=== PATIENT | female | born 1990 | race Caucasian/White ===

== ENCOUNTER 2017-10-10 03:32 | Emergency (ER) | payer OTHER, MEDICARE ==
[2017-10-10] MEDS ORDERED: Ondansetron HCl/PF 4 MG/2 ML Vial ONE (05:07)
[2017-10-10 06:22] LABS: #Lymphocytes 0.7 thou/uL (1.20-3.40); #Neutrophils 13.3 thou/uL (1.40-6.50); %Basophils 0.2 % (0.0-1.0); %Eosinophils 0.2 % (0.0-10.0); %Lymphocytes 4.9 % (21.0-51.0); %Monocytes 6.7 % (0.0-10.0); Mean Corpuscular HGB CONC 29.6 g/dL (32.0-36.0); Mean Corpuscular Hemoglobin 20.7 pg (27.0-31.0); Mean Corpuscular Volume 70.1 fl (81.0-99.0); Mean Platelet Volume 9.3 fL (7.4-10.4); Platelet Count 287 thou/uL (130-400); RBC Distribution Width 17.5 % (11.5-14.5); Red Blood Cell (RBC) Count 4.81 mill/uL (4.20-5.40); White Blood Cell (WBC) Count 15.1 thou/uL (4.8-10.8)
[2017-10-10 06:42] LABS: ALT (SGPT) 18 U/L (8-55); AST (SGOT) 22 U/L (5-34); Albumin 3.9 g/dL (3.5-5.0); Alkaline Phosphatase 67 U/L (40-150); Anion Gap 10 mmol/L (10-20); BUN (Urea Nitrogen) 9 mg/dL (7.0-18.7); Bilirubin, Total 0.3 mg/dL (0.2-1.2); Calc. Creatinine Clearance 0 mL/min (70-130); Carbon Dioxide 21 mmol/L (22-29); Chloride 103 mmol/L (98-107); Estimated GFR-MDRD Greater than 90; Globulin 4.1 g/dL (2.4-3.5); Glucose 106 mg/dL (70-105); Potassium 4.1 mmol/L (3.5-5.1); Sodium 130 mmol/L (136-145)
== END 2017-10-10 07:24 | disposition home or self-care (01) ==
LOC: ERS 03:32
DX: J20.9 Acute bronchitis, unspecified (principal); K50.90 Crohn's disease, unspecified, without complications; J45.909 Unspecified asthma, uncomplicated; F32.9 Major depressive disorder, single episode, unspecified; F41.9 Anxiety disorder, unspecified; F42.9 Obsessive-compulsive disorder, unspecified
CPT/HCPCS: 36415; 80053; 85025; 87804; 96374; J2405

== ENCOUNTER 2017-11-06 16:00 | Outpatient (CLI) | payer OTHER, MEDICARE | END 2017-11-06 16:01 | disposition home or self-care (01) | LOC: BICRAD 16:00 | PROVIDERS: ATTEND Internal Medicine | DX: D64.9 Anemia, unspecified (principal); K60.3 Anal fistula | CPT/HCPCS: 74019 ==

== ENCOUNTER 2017-12-18 09:53 | Outpatient (CLI) | payer OTHER, MEDICARE | END 2017-12-18 09:54 | disposition home or self-care (01) | LOC: BICMAMMO 09:53 | PROVIDERS: ATTEND Family Medicine | DX: Z09 Encounter for follow-up examination after completed treatment for conditions other than malignant neoplasm (principal); Z87.2 Personal history of diseases of the skin and subcutaneous tissue; Z80.3 Family history of malignant neoplasm of breast | CPT/HCPCS: 77066; G0279 ==

== ENCOUNTER 2018-01-13 10:48 | Emergency (ER) | payer OTHER, MEDICARE ==
[2018-01-13 11:39] LABS: #Eosinphils 0.2 thou/uL (0.0-0.7); #Lymphocytes 1.1 thou/uL (1.20-3.40); #Monocytes 0.5 thou/uL (0.11-0.59); #Neutrophils 4.5 thou/uL (1.40-6.50); %Basophils 0.4 % (0.0-1.0); %Eosinophils 2.9 % (0.0-10.0); %Lymphocytes 16.7 % (21.0-51.0); %Monocytes 8.5 % (0.0-10.0); %Neutrophils 71.5 % (42.0-75.0); Hemoglobin 12.7 g/dL (12.0-16.0); Mean Corpuscular HGB CONC 31.4 g/dL (32.0-36.0); Mean Corpuscular Hemoglobin 24.8 pg (27.0-31.0); Mean Corpuscular Volume 79.1 fl (81.0-99.0); Mean Platelet Volume 7.6 fL (7.4-10.4); Platelet Count 306 thou/uL (130-400); RBC Distribution Width 19.7 % (11.5-14.5); Red Blood Cell (RBC) Count 5.14 mill/uL (4.20-5.40); White Blood Cell (WBC) Count 6.3 thou/uL (4.8-10.8)
[2018-01-13 11:49] LABS: Lactic Acid 1.3 mmol/L (0.5-2.2)
[2018-01-13 11:55] LABS: ALT (SGPT) 25 U/L (8-55); AST (SGOT) 22 U/L (5-34); Albumin 3.6 g/dL (3.5-5.0); Alkaline Phosphatase 90 U/L (40-150); Anion Gap 10 mmol/L (10-20); BUN (Urea Nitrogen) 9 mg/dL (7.0-18.7); Bilirubin, Total Less than 0.2 mg/dL (0.2-1.2); CRP (Inflammatory) 2.15 mg/dL (= or < 0.5); Calc. Creatinine Clearance 0 mL/min (70-130); Calcium 8.9 mg/dL (7.8-10.44); Carbon Dioxide 22 mmol/L (22-29); Chloride 107 mmol/L (98-107); Estimated GFR-MDRD Greater than 90; Globulin 4.2 g/dL (2.4-3.5); Glucose 126 mg/dL (70-105); Potassium 3.7 mmol/L (3.5-5.1); Protein, Total 7.8 g/dL (6.0-8.3); Sodium 135 mmol/L (136-145)
[2018-01-13 12:03] LABS: BHCG - Serum Negative (NEGATIVE); Pregs Control Background? CLEAR/WHITE (CLR/WHITE); Pregs Control Bar Appear? YES (CONTROL BAR)
== END 2018-01-13 13:20 | disposition home or self-care (01) ==
LOC: ERS 10:48
DX: F42.9 Obsessive-compulsive disorder, unspecified; K61.0 Anal abscess; F32.9 Major depressive disorder, single episode, unspecified; K50.90 Crohn's disease, unspecified, without complications; F41.9 Anxiety disorder, unspecified; J45.909 Unspecified asthma, uncomplicated
CPT/HCPCS: 36415; 80053; 83605; 84703; 85025; 86140

== ENCOUNTER 2018-04-11 02:14 | Inpatient (IN) | payer OTHER, MEDICARE ==
[2018-04-11 02:43] LABS: #Eosinphils 0.3 thou/uL (0.0-0.7); #Monocytes 0.6 thou/uL (0.11-0.59); #Neutrophils 3.8 thou/uL (1.40-6.50); %Basophils 0.5 % (0.0-1.0); %Eosinophils 5.6 % (0.0-10.0); %Lymphocytes 17.1 % (21.0-51.0); %Monocytes 10.2 % (0.0-10.0); %Neutrophils 66.6 % (42.0-75.0); Hemoglobin 12.9 g/dL (12.0-16.0); Mean Corpuscular Hemoglobin 26.4 pg (27.0-31.0); Mean Corpuscular Volume 82.5 fL (78.0-98.0); Mean Platelet Volume 5.7 fL (7.4-10.4); Platelet Count 338 thou/uL (130-400); RBC Distribution Width 12.7 % (11.5-14.5); Red Blood Cell (RBC) Count 4.88 mill/uL (4.20-5.40); White Blood Cell (WBC) Count 5.7 thou/uL (4.8-10.8)
[2018-04-11 03:06] LABS: ALT (SGPT) 12 U/L (8-55); AST (SGOT) 15 U/L (5-34); Albumin 3.5 g/dL (3.5-5.0); Alkaline Phosphatase 95 U/L (40-150); Anion Gap 11 mmol/L (10-20); BUN (Urea Nitrogen) 8 mg/dL (7.0-18.7); Bilirubin, Total 0.2 mg/dL (0.2-1.2); Calc. Creatinine Clearance 0 mL/min (70-130); Calcium 9.1 mg/dL (7.8-10.44); Carbon Dioxide 26 mmol/L (22-29); Chloride 102 mmol/L (98-107); Estimated GFR-MDRD Greater than 90; Globulin 4.2 g/dL (2.4-3.5); Glucose 109 mg/dL (70-105); Potassium 3.7 mmol/L (3.5-5.1); Protein, Total 7.7 g/dL (6.0-8.3); Sodium 135 mmol/L (136-145)
[2018-04-11 03:07] LABS: CRP (Inflammatory) 8.1 mg/dL (= or < 0.5)
[2018-04-11] MEDS ORDERED: Ondansetron HCl/PF 4 MG/2 ML Vial ONE ×2 (05:07→05:32)
[2018-04-11 05:47] LABS: Bilirubin Negative (Negative); Blood, Urine Trace (Negative); Clarity CLEAR (Clear); Glucose, Urine (Dipstick) Negative (Negative); Leukocyte Negative (Negative); Nitrite Negative (Negative); Protein, Urine (Dipstick) Negative (Neg-Trace); Specific Gravity, Urine 1.037 (1.002-1.036); Urobilinogen 0.2 mg/dL (0.2-1.0); pH, Urine 5.5 (5.0-9.0)
[2018-04-11 05:49] LABS: Bacteria/HPF None Seen HPF (None Seen); Hyaline Casts/LPF 4-6 HYALINE CAST LPF (0-3 Hyaline); Pathc Cast-AUWi Flag 0.14 (0-2.49); Squamous Epithelial 0-3 HPF (0-3)
[2018-04-11 05:50] LABS: Pregnancy Test - Urine (BHCG) Negative (Negative)
[2018-04-11 05:51] LABS: Pregu Control Background? CLEAR/WHITE (CLR/WHITE); Pregu Control Bar Appear? YES (CONTROL BAR); Specific Gravity 1.037 (1.002-1.036)
[2018-04-11] MEDS ORDERED: Metoclopramide HCl 10 MG/2 ML VIAL ONE (05:55)
[2018-04-11] MEDS ORDERED: Ketorolac Tromethamine 30 MG/ML VIAL ONE (05:59)
--- NOTE | 2018-04-11 08:34 | CT ---
CT ABDOMEN AND PELVIS WITH ORAL AND IV CONTRAST: Date: 04/11/18 HISTORY: Abdominal pain. Patient has history of Crohn's disease. FINDINGS: The lung bases are clear. The liver, spleen, pancreas, adrenal glands, and kidneys are normal. The pa tient is post cholecystectomy. The small bowel loops are not abnormally dilated. There is thickening of the wall and enhancement of the wall of the terminal ileum. Surrounding inflammatory changes are seen. There is thickening of the wall of the appendix. Prominent ileocecal lymph nodes are noted. There is a small amount of free flu id in the pelvis. No abnormally loculated fluid collection is seen to suggest abscess formation. Uterus is present. Seton wire is noted in two sinus tracts in the gluteal cleft, similar to that on t he CT pelvis study of 06/06/17. IMPRESSION: Findings consistent with active Crohn's disease. Secondary involvement of the appendix (appendicitis) cannot be completely excluded. POS: JOSE
[2018-04-11] MEDS ORDERED: ISOVUE-370 76%-LOCM 1 ML ONE (10:47)
[2018-04-11] MEDS ORDERED: Water For Inject, Bacteriostat 30 ML ONE (12:01)
--- NOTE | 2018-04-11 12:56 | CON ---
DATE OF CONSULTATION: 04/11/2018 GASTROENTEROLOGY CONSULTATION CHIEF COMPLAINT: Abdominal pain. HISTORY OF PRESENT ILLNESS: Ms. Morris is a 28-year-old woman with complicated penetrating Croh n's disease who has had worsening epigastric pain which is sharp and continuous and radiates down tow ards her right lower quadrant. This pain started flaring worse over the last 4 weeks; however, she h as tried to tough this out at home because her just underwent total proctocolectomy for colon cancer in mid March. He is back home and recovering and getting used to ileostomy; however, this has significantly placed increased stress on Elizabeth. She finally could not deal with the pain furthe r, so she came onto the emergency room today for further care. She has had nausea and vomiting with vomiting up to 3 times per day over the last 3 weeks. She has been keeping liquids down pretty well. She has 20 or more liquidy bloody bowel movements per day. She has had increased output from her p erianal fistulizing disease. She has had Setons in place for years. She has been following with Dr. Pena as an outpatient. She is also followed with Dr. Mitchell Low in [place]. She did take a cour se of budesonide back in December; however, is uncertain if she really had significant improvement with that. She has known deep ulcerations and narrowing at the terminal ileum by colonoscopy by Dr. Pena in 06/2017. There is also some inflammatory change in the sigmoid and then the perianal disease was also noted at that time. She has been on azathioprine for the last couple of years. She was changed from Remicade to Stelara which she started in 11/2017. She had her first followup maintenance injec tion in December and then her second maintenance injection in March. She is due for her third injection next week. Due to the persistent epigastric pain, she has been tried with dicyclomine, however, this has been inadequate. She has been avoiding steroids due to history of PTSD and depressio n. She had what she describes as a manic episode 3 weeks after her delivery. She did not even recog nize that she had had kids and she had forgotten she had moved to [place] and had quite severe psychiat summer changes with that. She has been tried on antidepressants and antianxiety medicines; however, the se were stopped several months ago. When she had her flare of what may have been psychosis following delivery, she was on Zoloft at that time, which she states she does not do well with. She delivered her baby in 12/2016. She has followed with Dr. Alexander and Dr. Mckeon with [facility] . She states that she has been considering diverting colostomy by colorectal surgery for treatment o f her severe perianal disease. She states this has been placed on hold due to her 's cancer a nd treatment. Her colorectal surgeon has since closed his practice and moved and she has been attemp ting to reestablish with a new colorectal surgeon. However, her appointments have been canceled due to changes in the surgeon's scheduled. She at this point not met her new colorectal surgeon. She kennedy s lost from 170 pounds to 150 pounds over the last month or two. PAST MEDICAL HISTORY: PTSD and depression. Possibility of bipolar disorder is also a dorsey sed. Severe penetrating Crohn's disease with perianal disease and severe terminal ileum disease diag [facility] in 2009. She was originally treated with 5-ASA compounds, methotrexate, azathioprine and Beto john before moving to [place]. She has since been on azathioprine and Remicade. However, despite dose escalation of the Remicade, she has failed to respond and she changed to Stelara in addition to azat hioprine as stated above in 11/2017. Asthma and reported diastolic dysfunction. She has also had el evated liver tests previously. She has been treated for vitamin D deficiency and iron deficiency as well. She has been given IV iron by Hematology. PAST SURGICAL HISTORY: Colonoscopy, EGD, Seton placement to perirectal fistulas. FAMILY HISTORY: Negative for GI malignancy. SOCIAL HISTORY: No alcohol, tobacco or drugs. Her is undergoing treatment for colon cancer related to FAP. He just had total proctocolectomy 3 weeks ago. ALLERGIES: NOVOCAIN, PHENERGAN, DAIRY PRODUCTS. MEDICATIONS PRIOR TO ADMISSION: Azathioprine 125 mg daily, Stelara 90 mg subcutaneously every 8 week s, vitamin D. She had been on buspirone previously, but not for several months. She takes Zofran as needed. She has been on Advair and albuterol. REVIEW OF SYSTEMS: Negative x10 systems reviewed except as stated in history of present illness. Yrn porter does have some chills and she reports fever to 101 a couple of days ago. PHYSICAL EXAMINATION: VITAL SIGNS: Temperature 99.4, pulse 76, blood pressure 112/76. GENERAL: She is in no acute distress, alert and oriented x3. EYES: Have no scleral icterus. OROPHARYNX: Clear without lesions. NECK: No cervical or supraclavicular lymphadenopathy. HEENT: She does report a sore in her mouth on the inside right cheek which I can visualize directly now. LUNGS: Clear to auscultation bilaterally. HEART: Regular rate and rhythm without murmur. ABDOMEN: Soft. She has some tenderness in the left lower quadrant and some in the right lower quadr ant, but no significant guarding. Her bowel sounds are present. EXTREMITIES: No lower extremity edema. NEUROLOGIC: Cranial nerves are grossly intact. LABORATORY DATA: White blood cell count 5.7, hemoglobin 12.9, platelets 338, creatinine 0.75, biliru bin 0.2, AST 15, ALT 12, alkaline phosphatase 95. C-reactive protein 8.1, albumin 3.5 and lipase 32. IMAGING DATA: CT scan of the abdomen and pelvis showed thickening and enhancement of the wall of the terminal ileum. Surrounding inflammatory changes were also noted in this area. There was also some thickening of the wall of the appendix. Ileocecal lymph nodes were noted. IMPRESSION: 1. Exacerbation of ileocolonic Crohn's disease which is penetrating with perianal disease. She has had worsening pain and bloody diarrhea. She has increased output from her perianal fistulas as well. She has been on azathioprine for the last couple of years. She ultimately failed treatment with Re micade and has been started on Stelara in 11/2017. She has been considering diverting colostomy for treatment of the perianal Crohn's; however, she is transitioning from her prior colorectal surgeon wh o apparently has moved office or closed his practice and has been unable to get in with her new color ectal surgeon as of yet. RECOMMENDATIONS: 1. Check stool studies including Clostridium difficile. 2. We discussed treatment options. Overall, I would still favor giving more time for the Andria rodriguez to work; however, increasing the frequency to one month may be helpful. That is increasing the f requency to 90 mg once a month might be helpful. She is due for her next dose next week and we will see if we can get hold of this medication for her more immediately. She will continue azathioprine. It would be reasonable to check azathioprine drug level as well. Options now include starting syste ronnie steroids. Budesonide could be considered; however, she had minimal response to this in December and given the severity of her disease and pain and diarrhea, I think that she is unlikely to respond to Entocort at this point. Another option is to proceed to surgery with resection of the severely disea sed area in the ileum with ileostomy to divert for treatment of the perianal disease. In discussion with her, she does not feel like she is ready for surgery at this point given that she is wanting to travel to [place] opening and picking her children from [place] and has been out of town for the last couple of weeks while her is recovering from surgery. She has not yet established with her new colorectal surgeon. However, we could work on expediting this if needed. The primary concern for steroids is exacerbat ion of her psychiatric illness. Currently, she has no suicidal thoughts and another is sondrati ng more settled. She feels like she could handle the trial of steroids at this point. She would rat her do this, then proceeding with surgery more immediately. The thickened appendix appears to just b e secondary inflammation from the ileitis rather than true acute appendicitis. She does not have sig nificant tenderness to exam and the pain has been fairly stable over the last 3 weeks. 3. We will plan to admit now and start IV Solu-Medrol 20 mg q.8 hours. We will continue azathioprin e and try to administer the next Stelara dose as soon as possible and then work on an approval for mo nthly administration. If she does decompensate from a psychiatric standpoint with the steroids, then these will need to be discontinued and we will need to explore surgical options. 4. She has had relatively recent colonoscopy in 06/[address] Pena. More severe terminal ileum dis ease was noted. Colonic ulcerations were not seen to suggest CMV. Followup endoscopy could be consi dered to rule out CMV given the bloody diarrhea and abdominal pain; however, we will hold this for no w given the relatively recent colonoscopy.
[2018-04-11 13:01] VITALS: BMI 26.5
[2018-04-11] MEDS ORDERED: Dextrose 5 % And 0.9 % NaCl 1,000 ML IV SCH (13:15)
[2018-04-11] MEDS: Dextrose 5 % And 0.9 % NaCl 1,000 ML IV SCH ×2 (13:54→21:43)
[2018-04-11] MEDS ORDERED: oxyCODONE 5 MG TAB PO PRN (14:25)
[2018-04-11] MEDS ORDERED: HYDROcodone/Acetaminophen 7.5/325 mg Tablet PO PRN (14:27)
--- NOTE | 2018-04-11 15:37 | HP ---
CHIEF COMPLAINT: Abdominal pain. HISTORY OF PRESENT ILLNESS: The patient is a very pleasant 28-year-old female with a history of Croh n's disease, currently on azathioprine, who comes into the hospital with complaints of abdominal pain going on for the past 3-4 weeks. The patient states that she has been having abdominal pain with na usea, vomiting, and diarrhea for the past 3-4 weeks; however, has been unable to come into the hospit al due to a lot of personal problems going on at home. The patient stated that her recently underwent a total proctocolectomy for colon cancer. The patient states that she has been having some fevers and chills. She states that she has been using [id number] Tylenol and dicyclomine for her abdominal pain. The patient states that she has been able to keep a few certain food items down; however, has not been able to tolerate a dairy and acidic foods. The patient has been seeing GI as an outpatient and she has been started on Dulera and has received 1 dose. The patient also states th at she is a little hesitant to start on some IV steroids since given her depression, her P TSD and also her anxiety and depression. She feels that all of her mental illnesses will be exacerba andra. PAST MEDICAL HISTORY: History of Crohn's disease, depression, possible bipolar disorder, also vitamin D deficiency, and iron deficiency and also elevated LFTs. PAST SURGICAL HISTORY: She has had a cholecystectomy, colonoscopy, EGD and Seton placement of a leroy rectal fistula. FAMILY HISTORY: Negative for any kind of GI malignancy; however, she stated that her brother has marisol iac disease. SOCIAL HISTORY: She denies any alcohol, drug abuse or smoking. ALLERGIES: She is allergic to PHENERGAN, DAIRY PRODUCTS, and NOVOCAIN. MEDICATIONS: She takes azathioprine 125 mg daily, Stelara 90 mg subcutaneous every 8 weeks, vitamin D. Buspirone previously; however, currently she is not on any other antidepressant medications. REVIEW OF SYSTEMS: All negative except for the ones mentioned above in the HPI. PHYSICAL EXAMINATION: VITAL SIGNS: Temperature 99.4, pulse of 76, blood pressure 112/76. GENERAL: She is awake, alert, oriented x3, does not appear in distress. CARDIOVASCULAR: S1, S2 present. No murmurs, rubs or gallops. HEENT: Normocephalic, atraumatic. NECK: No lymphadenopathy noted. Sclerae is nonicteric. LUNGS: Clear to auscultation. CARDIAC: Heart S1, S2 present. No murmurs, rubs or gallops. ABDOMEN: Soft. Bowel sounds are present. She has got mild tenderness on her right lower quadrant a nd also on some left lower quadrant. EXTREMITIES: No edema. NEUROLOGIC: No focal deficits noted. LABORATORY DATA: WBC of 5.7, hemoglobin of 12.9, platelets of 338. Her creatinine 0.75. Her biliru bin is 0.2, AST 15, ALT is 12. C-reactive protein is 8.10. Lipase is 32. She also underwent a CT a bdomen and pelvis, which indicated consistent for active Crohn's disease secondary involvement for ap pendicitis cannot be completely excluded. ASSESSMENT AND PLAN: The patient is a very pleasant 28-year-old female who presents to the hospital for abdominal pain. 1. Abdominal pain most likely secondary to Crohn's exacerbation versus appendicitis; however, the pa miladys has been having this pain for the past 3-4 weeks. We will start the patient on some IV hydrati on. The patient has been seen by GI. The patient stated that she has been okay to be started on govind e clear liquids. We will start on some clear liquids. We will start the patient on some pain medica tions for her abdominal pain. Also, she has been started on steroids and also on azathioprine. Stoo l studies have been ordered. 2. Tachycardia, this could be possibly secondary to dehydration. We will continue to monitor. 3. Deep venous thrombosis prophylaxis. We will put patient on subcu heparin versus Lovenox.
[2018-04-11] MEDS: Acetaminophen 325 MG TAB PO PRN (19:44)
[2018-04-11] MEDS: Famotidine/PF 20 mg/2ml Vial SLOW IVP SCH (19:45)
[2018-04-11 23:46] LABS: #Lymphocytes 0.4 thou/uL (1.20-3.40); #Monocytes 0.4 thou/uL (0.11-0.59); %Basophils 0.7 % (0.0-1.0); %Eosinophils 0.4 % (0.0-10.0); %Lymphocytes 11.7 % (21.0-51.0); %Monocytes 9.2 % (0.0-10.0); Hemoglobin 11.4 g/dL (12.0-16.0); Mean Corpuscular Hemoglobin 26.2 pg (27.0-31.0); Mean Corpuscular Volume 84.4 fL (78.0-98.0); Mean Platelet Volume 6.1 fL (7.4-10.4); Platelet Count 290 thou/uL (130-400); RBC Distribution Width 12.8 % (11.5-14.5); Red Blood Cell (RBC) Count 4.35 mill/uL (4.20-5.40); White Blood Cell (WBC) Count 3.8 thou/uL (4.8-10.8)
[2018-04-12 00:01] LABS: Anion Gap 9 mmol/L (10-20); BUN (Urea Nitrogen) 6 mg/dL (7.0-18.7); Calc. Creatinine Clearance 144 mL/min (70-130); Calcium 8.3 mg/dL (7.8-10.44); Carbon Dioxide 22 mmol/L (22-29); Chloride 109 mmol/L (98-107); Estimated GFR-MDRD Greater than 90; Glucose 127 mg/dL (70-105); Potassium 3.9 mmol/L (3.5-5.1); Sodium 136 mmol/L (136-145)
[2018-04-12 05:16] LABS: #Lymphocytes 0.5 thou/uL (1.20-3.40); #Monocytes 0.4 thou/uL (0.11-0.59); #Neutrophils 2.6 thou/uL (1.40-6.50); %Basophils 0.7 % (0.0-1.0); %Eosinophils 0.3 % (0.0-10.0); %Lymphocytes 13.6 % (21.0-51.0); %Monocytes 11.8 % (0.0-10.0); %Neutrophils 73.6 % (42.0-75.0); Hemoglobin 11.7 g/dL (12.0-16.0); Mean Corpuscular HGB CONC 30.9 g/dL (32.0-36.0); Mean Corpuscular Hemoglobin 25.9 pg (27.0-31.0); Mean Corpuscular Volume 83.8 fL (78.0-98.0); Mean Platelet Volume 6.2 fL (7.4-10.4); Platelet Count 305 thou/uL (130-400); RBC Distribution Width 12.8 % (11.5-14.5); Red Blood Cell (RBC) Count 4.52 mill/uL (4.20-5.40); White Blood Cell (WBC) Count 3.5 thou/uL (4.8-10.8)
[2018-04-12 05:40] LABS: Anion Gap 10 mmol/L (10-20); BUN (Urea Nitrogen) 6 mg/dL (7.0-18.7); Calc. Creatinine Clearance 156 mL/min (70-130); Calcium 8.7 mg/dL (7.8-10.44); Carbon Dioxide 23 mmol/L (22-29); Chloride 110 mmol/L (98-107); Estimated GFR-MDRD Greater than 90; Glucose 136 mg/dL (70-105); Potassium 4.2 mmol/L (3.5-5.1); Sodium 139 mmol/L (136-145)
[2018-04-12] MEDS: Dextrose 5 % And 0.9 % NaCl 1,000 ML IV SCH ×3 (05:40→17:14)
[2018-04-12] MEDS ORDERED: Sodium Chloride 0.9% 1,000 ML IV SCH (06:45)
[2018-04-12] MEDS: Acetaminophen 325 MG TAB PO PRN ×3 (07:20→20:38)
[2018-04-12 09:10] LABS: CKMB 0.4 ng/mL (0-6.6); Troponin I Less than 0.010 ng/mL (< 0.028)
[2018-04-12] MEDS: azaTHIOprine 50 MG TAB PO SCH (09:40)
[2018-04-12] MEDS: Enoxaparin Sodium 40 MG/0.4 ML SYRINGE SC SCH (09:44)
[2018-04-12] MEDS: Famotidine/PF 20 mg/2ml Vial SLOW IVP SCH (09:44)
[2018-04-12 11:06] LABS: Magnesium 1.9 mg/dL (1.6-2.6); Phosphorus 2.8 mg/dL (2.3-4.7)
[2018-04-12] MEDS: Piperacillin/Tazobactam 3.375 GM in Sodium Chloride 0.9% 100 ML IVPB SCH ×2 (12:11→17:14)
[2018-04-12 12:31] LABS: Reference Lab Name LABCORP
--- NOTE | 2018-04-12 15:07 | PRG ---
DATE OF SERVICE: 04/12/2018 GI INPATIENT DAILY PROGRESS NOTE SUBJECTIVE: Elizabeth is feeling pretty well today from an abdominal standpoint. Abdominal discomfo rt is less. She had some formed stool. She is tolerating her full liquid diet. She did have some r elative hypotension with systolic blood pressures in the 80s, but there was no dizziness or lighthead edness associated with this. Blood cultures were drawn and she was started empirically on Zosyn. Im portantly, she relates that emotionally she is feeling fine. She does not feel like the steroids are exacerbating her depression, though she is a bit anxious and depressed about staying in the hospital another night. OBJECTIVE: VITAL SIGNS: Temperature 97.5, pulse 62, blood pressure 96/54, 97% oxygen saturation on room air. GENERAL: No acute distress. HEART: Regular rate and rhythm. LUNGS: Clear to auscultation bilaterally. ABDOMEN: Bowel sounds are present, soft, tender to palpation of the lower abdomen. EXTREMITIES: No peripheral edema. LABORATORY STUDIES: WBC 3.5, hemoglobin 11.7, platelets 305. Sodium 139, potassium 4.2, BUN 6, crea tinine 0.59, phosphorus 2.8, magnesium 1.9, troponin negative. Lipase 32 and CRP 8.1. Urine pregnan cy test negative. Stool studies are pending at this time. C. difficile assay was not run due to the stool being formed. ASSESSMENT AND PLAN: 1. Crohn's disease of the terminal ileum, severe, with ongoing chronic low grade obstructive symptom s. 2. Perianal Crohn's disease, severe, chronic. 3. Depression. I appreciate Dr. Charles's assistance in having started her on IV steroids yesterday. Thankfully, she relates that she does not seem to be having any emotional decompensation with this. I do agree with observing her for one more night to assure that this does not occur. We will go ahead and try to adv ance her diet to low fiber, low residue diet. I think that if she is feeling okay tomorrow and beba ating her diet, she can potentially be discharged tomorrow morning with steroids, transitioned to ora l dosing. I would have her on prednisone 40 mg daily until GI Clinic followup in the next couple of weeks. In the meantime, we will also be planning to increase her Stelara frequency to one injection every 4 weeks. Her next injection is set for next week. Please call any time with questions or concerns.
--- NOTE | 2018-04-12 17:54 | PDOC.PN ---
- Subjective Encounter Start Date: 04/12/18 Encounter Start Time: 09:45 Subjective: pt up in bed feels better today - Objective Resuscitation Status: Resuscitation Status FULL:Full Resuscitation Vital Signs & Weight: Vital Signs (12 hours) Temp Pulse Resp BP BP BP Pulse Ox 04/12/18 17:00 97.7 F 62 16 113/74 98 04/12/18 15:26 97.7 F 59 L 12 93/61 97 04/12/18 07:57 97.5 F L 62 18 04/12/18 07:40 97.5 F L 62 18 96/54 L 97 04/12/18 06:27 71 99/58 L 04/12/18 06:05 56 L 88/52 L Weight Weight 154 lb 8 oz I&O: 04/11/18 04/12/18 04/13/18 06:59 06:59 06:59 Intake Total 2363 Balance 2363 Result Diagrams: 04/12/18 05:02 04/12/18 05:02 Phys Exam - Physical Examination HEENT: PERRLA, moist MMs, sclera anicteric, TM's clear, oral pharynx no lesions , 2+ tonsils Neck: no nodes, no JVD, supple, full ROM Respiratory: no wheezing, no rales, no rhonchi, wheezing present, clear to auscultation bilateral Cardiovascular: RRR, no significant murmur, no rub, gallop, irregular Gastrointestinal: soft, non-tender, no distention, positive bowel sounds Musculoskeletal: no edema, pulses present, edema present Dx/Plan (1) Crohns disease Code(s): K50.90 - CROHN'S DISEASE, UNSPECIFIED, WITHOUT COMPLICATIONS Status: Acute (2) Nausea vomiting and diarrhea Code(s): R11.2 - NAUSEA WITH VOMITING, UNSPECIFIED; R19.7 - DIARRHEA, UNSPECIFIED Status: Acute (3) Hypotension Status: Acute (4) Bradycardia Code(s): R00.1 - BRADYCARDIA, UNSPECIFIED Status: Acute - Plan pt was hypotensive and was given ns bolus and was started on iv abx -: pt states she feels well today. spoke with gi in regards to advance diet -: today and if tolerated discharge in am -: pt did have bradycardia but was asymtomatic. she states that she has -: had a workup in [place]. Her qtc was prolonged but electrolytes norm * . Review of Systems - Review of Systems ENT: negative: Ear Pain, Ear Discharge, Nose Pain, Nose Discharge, Nose Congestion, Mouth Pain, Mouth Swelling, Throat Pain, Throat Swelling, Other Respiratory: negative: Cough, Dry, Shortness of Breath, Hemoptysis, SOB with Excertion, Pleuritic Pain, Sputum, Wheezing Cardiovascular: negative: chest pain, palpitations, orthopnea, paroxysmal nocturnal dyspnea, edema, light headedness, other Gastrointestinal: negative: Nausea, Vomiting, Abdominal Pain, Diarrhea, Constipation, Melena, Hematochezia, Other - Medications/Allergies Allergies/Adverse Reactions: Allergies Allergy/AdvReac Type Severity Reaction Status Date / Time oseltamivir [From Tamiflu] Allergy Intermediate Rash Verified 04/11/18 12:59 Sulfa (Sulfonamide Allergy Mild Stomach Verified 04/11/18 12:59 Antibiotics) Ache diphenhydramine AdvReac Mild Verified 10/29/16 18:57 [From Benadryl] procaine [From Novocain] AdvReac Mild Verified 10/29/16 18:57 promethazine [From Phenergan] AdvReac Mild Anxiety Verified 10/29/16 18:57 Medications: Current Medications Acetaminophen (Tylenol) 650 mg PO Q6H PRN PRN Reason: Pain Last Admin: 04/12/18 14:17 Dose: 650 mg Hydrocodone Bitart/Acetaminophen ([place] 7.5/325) 1 tab PO Q4H PRN PRN Reason: Mild-Moderate Pain (1-5) Azathioprine (Imuran) 125 mg PO DAILY [facility] Last Admin: 04/12/18 09:40 Dose: 125 mg Enoxaparin Sodium (Lovenox) 40 mg SC 0900 [facility] Last Admin: 04/12/18 09:44 Dose: Not Given Famotidine (Pepcid) 20 mg PO BID [facility] Dextrose/Sodium Chloride (D5 0.9% Ns) 1,000 mls @ 125 mls/hr IV .Q8H [facility] Last Admin: 04/12/18 17:14 Dose: 1,000 mls Piperacillin Sod/Tazobactam (Sod 3.375 gm/ Sodium Chloride) 100 mls @ 200 mls/ hr IVPB Q6HR [facility] Last Admin: 04/12/18 17:14 Dose: 100 mls Methylprednisolone Sodium Succinate (Solu-Medrol) 20 mg IVP Q8HR [facility] Last Admin: 04/12/18 14:18 Dose: 20 mg Oxycodone HCl (Oxycodone Ir) 5 mg PO Q4H PRN PRN Reason: Pain Sodium Chloride (Flush - Normal Saline) 10 ml IVF Q12HR [facility] Last Admin: 04/12/18 09:58 Dose: Not Given Sodium Chloride (Flush - Normal Saline) 10 ml IVF PRN PRN PRN Reason: Saline Flush Last Admin: 04/12/18 14:20 Dose: 10 ml
[2018-04-12] MEDS: Famotidine 20 MG TAB PO SCH (20:31)
[2018-04-13] MEDS: Piperacillin/Tazobactam 3.375 GM in Sodium Chloride 0.9% 100 ML IVPB SCH ×3 (00:20→11:41)
[2018-04-13] MEDS: Dextrose 5 % And 0.9 % NaCl 1,000 ML IV SCH ×2 (02:32→08:16)
[2018-04-13 07:34] VITALS: TEMP 97.2
[2018-04-13] MEDS: Acetaminophen 325 MG TAB PO PRN (08:16)
[2018-04-13] MEDS: Enoxaparin Sodium 40 MG/0.4 ML SYRINGE SC SCH (08:17)
[2018-04-13] MEDS: azaTHIOprine 50 MG TAB PO SCH (08:17)
[2018-04-13] MEDS: Famotidine 20 MG TAB PO SCH (08:17)
[2018-04-13 11:43] VITALS: BP 126/79
--- NOTE | 2018-04-13 17:03 | EKG ---
Test Reason : Blood Pressure : / mmHG Vent. Rate : 048 BPM Atrial Rate : 048 BPM P-R Int : 154 ms QRS Dur : 082 ms QT Int : 526 ms P-R-T Axes : 038 015 002 degrees QTc Int : 469 ms Marked sinus bradycardia Nonspecific ST-T changes Abnormal ECG When compared with ECG of 21-MAR-1997 12:58, Vent. rate has decreased BY 23 BPM Inverted T waves have replaced nonspecific T wave abnormality in Inferior leads T wave inversion now evident in Anterior leads QT has lengthened Confirmed by DR. Dago SNYDER ([id number]) on 04/13/2018 5:02:40 PM Referred By: Confirmed By:DR. Dago SNYDER
--- NOTE | 2018-04-13 17:18 | EKG ---
Test Reason : Blood Pressure : / mmHG Vent. Rate : 052 BPM Atrial Rate : 052 BPM P-R Int : 152 ms QRS Dur : 080 ms QT Int : 486 ms P-R-T Axes : 045 016 007 degrees QTc Int : 451 ms Sinus bradycardia Nonspecific ST-T changes When compared with ECG of 12-APR-2018 15:34, (Unconfirmed) No significant change was found Confirmed by DR. Dago SNYDER ([id number]) on 04/13/2018 5:17:48 PM Referred By: JOSÉ ANTONIO Confirmed By:DR. Dago SNYDER
--- NOTE | 2018-04-15 01:02 | DIS ---
DATE OF ADMISSION: 04/11/2018 DATE OF DISCHARGE: 04/13/2018 DISCHARGE DIAGNOSES: 1. Acute Crohn's flare. 2. Prolonged QTC. 3. Nausea, vomiting, and diarrhea. 4. Dehydration. HOSPITAL COURSE: The patient is a very pleasant 28-year-old female who is on acetazolamide who comes to the hospital with complaints of nausea, vomiting, and diarrhea, which has been going on for the p ast 3-4 weeks. The patient has been under a lot of stress, especially with her , undergoing s urgery for rectal cancer. The patient did have a CT abdomen and pelvis did indicate that she did hav e some thickening of the wall around the appendix and also had some thickening wall enhancement of th e wall of the terminal ileum, surrounding inflammatory changes was also seen. At this time, GI was c onsulted who thought most likely her CAT scan finding was consistent with acute Crohn's disease. The patient was started on some IV hydration. Also at this time, she was started on some steroids. The patient was very reluctant to start any high dose steroids given her history of mental issues, which she feels would exacerbate giving her recent stressful situation at home. However, the patient was started on some low dose steroids. She continued to improve throughout the hospital stay. She was i nitially started on a clear liquid diet and was progressed to a regular diet. On day 2, the patient was hypotensive and at that time she was given IV boluses and also was started on IV antibiotics. Th is was discussed with the GI inpatient and she remained afebrile and therefore IV antibiotics were di scontinued. Her hypotensive was most likely thought to be secondary to dehydration. Also, she was f ound to be bradycardic and had an EKG done which indicated prolonged QTC. She was not on any medicat ion that would worsen her QTC except for Zofran which she was taking at home. The patient has also b een feeling a little bit of palpitation at times and feels that she has been skipping some beats. Di elida recommend to get a Cardiology consult; however, the patient stated that given her very stressful si tuation at home she would be unable to stay in the hospital for further evaluation and would follow u p as an outpatient with outpatient Cardiology. Also, patient stated that she had this bradycardia an d feeling of palpitations evaluated in [place] with no significant findings or any diagnoses. However, I did recommend the patient to follow up with Cardiology as an outpatient. She will be put on steroids daily until she is seen by GI as an outpatient. PHYSICAL EXAMINATION: VITAL SIGNS: Temperature of 97.2, pulse 52, respirations 16, blood pressure 126/79, saturation 98% o n room air. GENERAL: She is awake, alert, oriented x3, does not appear in any distress. CARDIOVASCULAR: S1, S2 present. No murmurs, rubs or gallops. ABDOMEN: Soft, nontender. Bowel sounds present x2. EXTREMITIES: No edema. DISCHARGE INSTRUCTIONS: The patient will be discharged home. Follow up with Cardiology and also GI. Her home medications as the following, azathioprine 125 mg daily, prednisone 40 mg daily, tramadol 25 mg b.i.d. p.r.n., Protonix 40 mg daily, Bentyl 20 mg q.6 hours and also she was told not to take t he Zofran given her prolonged QTC.
== END 2018-04-13 13:02 | disposition home or self-care (01) | DRG 387 ==
LOC: ERS 02:14 → OBSVTOIN 11:15 → 2SW 11:15 → 2NO 04-12 16:51
PROVIDERS: ADMIT Internal Medicine; ATTEND Internal Medicine
DX: K50.80 Crohn's disease of both small and large intestine without complications (principal); R00.1 Bradycardia, unspecified; E86.0 Dehydration; F32.9 Major depressive disorder, single episode, unspecified; Z90.49 Acquired absence of other specified parts of digestive tract
CPT/HCPCS: 36415; 74177; 80048; 80053; 81003; 81015; 81025; 82553; 83690; 83735; 84100; 84145; 84484; 85025; 86140; 87045; 87046; 87328; 87329; 87449; 87899; 93005; 93010; 96365; 96375; A4216; J1650; J1885; J2270; J2405; J2543; J2765; J2920; J7050; J7500; S0028

== ENCOUNTER 2018-09-17 10:35 | Emergency (ER) | payer MEDICARE ==
[2018-09-17 11:57] LABS: #Eosinphils 0.1 thou/uL (0.0-0.7); #Lymphocytes 0.8 thou/uL (1.20-3.40); #Monocytes 0.6 thou/uL (0.11-0.59); #Neutrophils 3.9 thou/uL (1.40-6.50); %Basophils 0.3 % (0.0-1.0); %Monocytes 11.1 % (0.0-10.0); %Neutrophils 72.5 % (42.0-75.0); Hemoglobin 12.2 g/dL (12.0-16.0); Mean Corpuscular HGB CONC 31.1 g/dL (32.0-36.0); Mean Corpuscular Hemoglobin 26.1 pg (27.0-31.0); Mean Platelet Volume 6.5 fL (7.4-10.4); Platelet Count 273 thou/uL (130-400); RBC Distribution Width 13.5 % (11.5-14.5); Red Blood Cell (RBC) Count 4.68 mill/uL (4.20-5.40); White Blood Cell (WBC) Count 5.4 thou/uL (4.8-10.8)
[2018-09-17 12:14] LABS: ALT (SGPT) 23 U/L (8-55); AST (SGOT) 24 U/L (5-34); Albumin 3.8 g/dL (3.5-5.0); Alkaline Phosphatase 101 U/L (40-150); Anion Gap 12 mmol/L (10-20); BUN (Urea Nitrogen) 6 mg/dL (7.0-18.7); Bilirubin, Total 0.2 mg/dL (0.2-1.2); Calc. Creatinine Clearance 0 mL/min (70-130); Calcium 9.4 mg/dL (7.8-10.44); Carbon Dioxide 23 mmol/L (22-29); Chloride 104 mmol/L (98-107); Estimated GFR-MDRD 87; Globulin 3.8 g/dL (2.4-3.5); Glucose 87 mg/dL (70-105); Potassium 3.9 mmol/L (3.5-5.1); Protein, Total 7.6 g/dL (6.0-8.3); Sodium 135 mmol/L (136-145)
[2018-09-17] MEDS ORDERED: HYDROcodone/Acetaminophen 7.5/325 mg Tablet ONE (13:12)
[2018-09-17] MEDS ORDERED: Ondansetron PF 4 MG/2 ML Vial ONE (13:12)
--- NOTE | 2018-09-17 14:32 | HP ---
PRIMARY CARE PROVIDER: Disha Wiley MD HISTORY OF PRESENT ILLNESS: The patient developed a lesion on her right buttocks 6 days ago, was diagnosed shingles 4 days ago, put on Valtrex 1 g t.i.d. She now has lesions on her right mons and her right medial thigh. She states the only one does hurt, the ones on the right buttocks, the others itch. She notes her daughter had recent chickenpox. She states she has had some fever and chills over the past 24 hours. She was worried about disseminated disease as she is on immunosuppression per Dr. Pena for Crohn's and autoimmune hepatitis. Dr. Wiley had called Dr. Mclean. Dr. Mclean had advised the emergency room doctor that she needed to be in for IV acyclovir, now was called for an admission. I have examined the patient. I found no significant lesions except in the right L2 distribution. I have called Dr. Mclean to visit with her before I send her upstairs. PAST MEDICAL HISTORY: 1. Crohn disease, 2012. 2. Autoimmune hepatitis, 2013. 3. She has had a long history of perianal disease and has had 15 surgeries I and D's, etc. 4. She had a bowel resection for Crohn's 6 weeks ago, took out approximately 24 inches of bowel. 5. She has a history of asthma. CURRENT MEDICATIONS: 1. Valtrex 1 g t.i.d. 2. Azathioprine 75 mg a day. 3. Stelara 90 mg once a month subcu. 4. Prilosec OTC. 5. Zofran oral dissolving tablet 1 to 2 tablets every 6 hours p.r.n. 6. [place] for pain. ALLERGIES: EXTENSIVE LIST; BENADRYL, MORPHINE, NOVOCAIN, OSELTAMIVIR, PHENERGAN , PROCAINE, SULFA. FAMILY HISTORY: Mother has nonalcoholic steatohepatitis. Father has hypertension. SOCIAL HISTORY: , 2 children. No tobacco. No alcohol. REVIEW OF SYSTEMS: CONSTITUTIONAL: She has a history of prolonged QT syndrome and has had fainting in the past. She has a Holter monitor on. She had fever and chills last night. HEAD: No recent dizziness or fainting. EYES: No double vision, blurred vision, or flashing light. EAR, NOSE, AND THROAT: No ear pain or drainage. No nasal bleeding. No trouble swallowing. CARDIAC: She has occasional palpitations. No chest pain, orthopnea, or paroxysmal nocturnal dyspnea. RESPIRATIONS: No cough, wheezing, or asthma. GASTROINTESTINAL: No nausea, vomiting, or abdominal pain at this time. She does have some scant rectal bleeding. No diarrhea. GENITOURINARY: No hematuria or dysuria. MUSCULOSKELETAL: She has aches and pains in multiple joints related to an inflammatory arthritis, most likely related to Crohn disease. NEUROLOGIC: No strokes, seizures, or focal weakness. PSYCHIATRIC: No anxiety or depression. SKIN: See present illness. HEME/LYMPH: No tender or swollen lymph node in the axilla or inguinal cervical area. PHYSICAL EXAMINATION: GENERAL: Alert, oriented, in no distress. Cooperative and pleasant. VITAL SIGNS: Blood pressure 111/77, pulse 101, respirations 16, temperature 98.4. Pain listed as a 5. HEAD, EYES, EARS, NOSE, AND THROAT: Revealed pupils are equal, round, and reactive to light. Extraocular movements are intact. Sclerae are white. Tympanic membranes are clear. Nose clear. Oral mucous membranes are wet. Dental hygiene is good. NECK: No jugular venous distention, adenopathy, thyromegaly. CHEST: Clear to auscultation and percussion. ABDOMEN: Some mild generalized tenderness. No masses. Normal bowel sounds. No bruits. EXTREMITIES: No cyanosis, clubbing, or edema. Pulses; carotid, radial, femoral , and dorsalis pedis pulses intact. SKIN: On her right buttock, she has an erythematous rash with no vesicles in the L2 distribution. On her mons, she has similar rash with no vesicles and on medial thighs, she has a similar rash with no lesions. No significant dermatological lesions other than those mentioned. LYMPHATIC: No tender or swollen lymph nodes in the axilla, inguinal, or cervical area. No petechial lesions. NEUROLOGIC: Cranial nerves 2 through 12 are intact. Deep tendon reflexes symmetric. LABORATORY DATA: Comprehensive metabolic profile; normal except for sodium 135. CBC; normal except for some minor folliculitis abnormalities. No other reports are available. FINAL DIAGNOSES: 1. L2 right Dermatome herpes zoster. 2. Crohn disease. 3. Autoimmune hepatitis. 4. Asthma. I have discussed this patient with Dr. Mclean. He has seen the patient. She is going to be discharged on current therapy. Job ID: [id number] MTDD
--- NOTE | 2018-09-19 15:10 | EKG ---
Test Reason : Blood Pressure : / mmHG Vent. Rate : 077 BPM Atrial Rate : 077 BPM P-R Int : 158 ms QRS Dur : 090 ms QT Int : 412 ms P-R-T Axes : 045 017 010 degrees QTc Int : 466 ms Normal sinus rhythm Normal ECG Confirmed by WILBER MORALES ([id number]), editorial director SABIHA LIRIANO ([id number]) on 09/19/2018 3:09:51 PM Referred By: Confirmed By:WILBER MORALES
== END 2018-09-17 15:50 | disposition home or self-care (01) ==
LOC: ERS 10:35
DX: B02.9 Zoster without complications (principal); R00.0 Tachycardia, unspecified; K58.9 Irritable bowel syndrome, unspecified; D64.89 Other specified anemias; J45.909 Unspecified asthma, uncomplicated; F32.9 Major depressive disorder, single episode, unspecified; F42.9 Obsessive-compulsive disorder, unspecified; F41.9 Anxiety disorder, unspecified; Z79.899 Other long term (current) drug therapy
CPT/HCPCS: 36415; 80053; 83605; 85025; 87040; 93005; 96361; 96365; 96366; 96375; J0133; J2405; J7050

== ENCOUNTER 2018-12-31 23:15 | Emergency (ER) | payer MEDICARE ==
[2018-12-31 23:51] LABS: #Eosinphils 0.1 thou/uL (0.0-0.7); #Lymphocytes 0.7 thou/uL (1.20-3.40); #Monocytes 1.1 thou/uL (0.11-0.59); #Neutrophils 11.3 thou/uL (1.40-6.50); %Basophils 0.1 % (0.0-1.0); %Eosinophils 0.6 % (0.0-10.0); %Lymphocytes 5.2 % (21.0-51.0); %Monocytes 8.1 % (0.0-10.0); Hemoglobin 13.1 g/dL (12.0-16.0); Mean Corpuscular Hemoglobin 25.8 pg (27.0-31.0); Mean Corpuscular Volume 80.7 fL (78.0-98.0); Mean Platelet Volume 6.2 fL (7.4-10.4); Platelet Count 366 thou/uL (130-400); RBC Distribution Width 14.6 % (11.5-14.5); Red Blood Cell (RBC) Count 5.09 mill/uL (4.20-5.40); White Blood Cell (WBC) Count 13.1 thou/uL (4.8-10.8)
[2019-01-01 00:06] LABS: Bilirubin Negative (Negative); Blood, Urine Negative (Negative); Clarity CLEAR (Clear); Glucose, Urine (Dipstick) Negative (Negative); Leukocyte Trace (Negative); Nitrite Negative (Negative); Protein, Urine (Dipstick) Negative (Neg-Trace); Urobilinogen 0.2 mg/dL (0.2-1.0)
[2019-01-01 00:09] LABS: Specific Gravity, Urine 1.004 (1.002-1.036)
[2019-01-01 00:13] LABS: ALT (SGPT) 24 U/L (8-55); AST (SGOT) 25 U/L (5-34); Albumin 3.9 g/dL (3.5-5.0); Alkaline Phosphatase 134 U/L (40-150); Anion Gap 13 mmol/L (10-20); BUN (Urea Nitrogen) 8 mg/dL (7.0-18.7); Bilirubin, Total 0.4 mg/dL (0.2-1.2); Calc. Creatinine Clearance 0 mL/min (70-130); Calcium 9.2 mg/dL (7.8-10.44); Carbon Dioxide 22 mmol/L (22-29); Chloride 101 mmol/L (98-107); Estimated GFR-MDRD 87; Globulin 4.1 g/dL (2.4-3.5); Glucose 109 mg/dL (70-105); Potassium 3.6 mmol/L (3.5-5.1); Sodium 132 mmol/L (136-145)
[2019-01-01 00:22] LABS: Bacteria/HPF None Seen HPF (None Seen); Hyaline Casts/LPF NONE SEEN LPF (0-3 Hyaline); RBC/HPF None Seen HPF (0-3); Squamous Epithelial None Seen HPF (0-3); WBC/HPF None Seen HPF (0-3)
--- NOTE | 2019-01-01 08:24 | RAD ---
SINGLE VIEW CHEST: Date: 01/01/19 COMPARISON: None. HISTORY: Chest discomfort and fever. FINDINGS: Single view of the chest shows a normal sized cardiomediastinal silhouette. There is no evidence of c onsolidation, mass, or pleural effusion. The bones are unremarkable. IMPRESSION: No evidence of acute cardiopulmonary disease. POS: [facility]
== END 2019-01-01 03:00 | disposition home or self-care (01) ==
LOC: ERS 23:15
DX: K50.90 Crohn's disease, unspecified, without complications (principal); E86.0 Dehydration; B34.9 Viral infection, unspecified; D68.8 Other specified coagulation defects; J45.909 Unspecified asthma, uncomplicated; F32.9 Major depressive disorder, single episode, unspecified; F41.9 Anxiety disorder, unspecified; F42.9 Obsessive-compulsive disorder, unspecified; Z79.899 Other long term (current) drug therapy
CPT/HCPCS: 71045; 80053; 81003; 81015; 83605; 84484; 85025; 87804; 93005; 96360; 96361

== ENCOUNTER 2019-02-22 21:21 | Inpatient (IN) | payer OTHER, MEDICARE ==
[~2019-02-22 21:21] MED LIST: ISOVUE-370 76%-LOCM 1 ML ONE
[2019-02-22 22:02] LABS: #Eosinphils 0.1 thou/uL (0.0-0.7); #Lymphocytes 0.6 thou/uL (1.20-3.40); #Monocytes 0.5 thou/uL (0.11-0.59); %Basophils 0.5 % (0.0-1.0); %Lymphocytes 10.7 % (21.0-51.0); %Monocytes 10.5 % (0.0-10.0); %Neutrophils 76.3 % (42.0-75.0); Hemoglobin 12.6 g/dL (12.0-16.0); Mean Corpuscular Volume 83.8 fL (78.0-98.0); Mean Platelet Volume 6.5 fL (7.4-10.4); Platelet Count 311 thou/uL (130-400); RBC Distribution Width 13.7 % (11.5-14.5); Red Blood Cell (RBC) Count 4.82 mill/uL (4.20-5.40); White Blood Cell (WBC) Count 5.2 thou/uL (4.8-10.8)
[2019-02-22] MEDS ORDERED: Ondansetron PF 4 MG/2 ML Vial ONE ×2 (22:04→23:51)
[2019-02-22] MEDS ORDERED: HYDROmorphone 0.5 MG/0.5 ML SYRINGE ONE (22:05)
[2019-02-22 22:24] LABS: ALT (SGPT) 19 U/L (8-55); AST (SGOT) 23 U/L (5-34); Albumin 4.1 g/dL (3.5-5.0); Alkaline Phosphatase 131 U/L (40-150); Anion Gap 12 mmol/L (10-20); BUN (Urea Nitrogen) 7 mg/dL (7.0-18.7); Bilirubin, Total 0.3 mg/dL (0.2-1.2); Calc. Creatinine Clearance 0 mL/min (70-130); Calcium 9.3 mg/dL (7.8-10.44); Carbon Dioxide 28 mmol/L (22-29); Chloride 101 mmol/L (98-107); Estimated GFR-MDRD 80; Globulin 3.7 g/dL (2.4-3.5); Glucose 99 mg/dL (70-105); Lipase 21 U/L (8-78); Potassium 3.7 mmol/L (3.5-5.1); Protein, Total 7.8 g/dL (6.0-8.3); Sodium 137 mmol/L (136-145)
--- NOTE | 2019-02-22 23:20 | CT ---
CT ABDOMEN AND PELVIS WITH IV CONTRAST 02/22/2019 CLINICAL INFORMATION: Rectal bleeding and abdominal pain. Fever. COMPARISON: 04/11/2018 Technique: Multiple contiguous axial CT images are obtained through the abdomen and pelvis with IV contrast. Cor onal reformatted images are provided. FINDINGS: Lower Chest: within normal limits. Vessels: Normal aorta is normal in caliber without evidence of an aortic dissection. Abdomen: Portal vein:Patent Gallbladder: Postcholecystectomy changes are again seen. Liver: within normal limits. Pancreas: within normal limits. Spleen: within normal limits. Adrenals: within normal limits. Kidneys: within normal limits. Bowel: There is been interval postsurgical changes involving the bowel in the right lower quadrant wi th anastomosis of small and large bowel in the right lower quadrant. There is also evidence of a left lower quadrant colostomy on current study with long Higginbotham's pouch. There are fluid-filled loops of small bowel seen in the pelvis with thickening of loops of small soila l also present in the pelvis with discontinuous loops of thickening of these loops of small bowel. Patient does have history of Crohn's disease, and these findings are likely attributable to inflammat ory bowel disease. Peritoneum: Small amount of free fluid is seen in the pelvis. There is no fluid collection seen to paul ggest an abscess. Mesentery and Retroperitoneum: No enlarged mesenteric or retroperitoneal lymph nodes. Abdominal Wall: Left lower quadrant colostomy is present. Pelvis: Reproductive Organs: The uterus demonstrates grossly normal CT appearance. Pelvis: There are metallic wires seen just posterior and below the level of the anus with wires exten ding into the subcutaneous soft tissues on the right. Findings could represent cerclage wires. These wires were present on the prior exam; although, the wire extending into the subcutaneous soft t issues to the right of midline was not present on prior study. There is a subcentimeter appearing fluid collection seen in the perineal region just to the right of midline adjacent to the region of t he expected location of the anus/distal rectum. Exact etiology for this structure is uncertain. Just below this region is a gas density, and these areas are just superior to the metallic wires. Cli nical correlation is recommended. Bladder: Incompletely distended or evaluated. Bones: within normal limits. IMPRESSION: 1. Post surgical changes of loops of bowel in the abdomen with evidence of left lower quadrant colost adriel. There is thickening of roque of loops of small bowel in the pelvis which are fluid-filled. Thickened loops of small bowel are likely attributable to inflammatory bowel disease given patient's clinical history. 2. Postsurgical changes with was thought to be cerclage wires seen in the midline lower gluteal regio n below the level of the rectum and anus with wire extending to the subcutaneous soft tissues medial right lower gluteal region. Also subcentimeter tiny fluid collection as well as gas collection just superior to the level of the subtalar is warranted the medial right gluteal region. Clinical correlation for etiology of these findings is recommended. 3. Tiny amount of free fluid in the pelvis.
[2019-02-23] MEDS ORDERED: Metoclopramide HCl 10 MG/2 ML VIAL ONE (01:17)
[2019-02-23] MEDS ORDERED: HYDROmorphone 0.5 MG/0.5 ML SYRINGE ONE (01:17)
[2019-02-23] MEDS ORDERED: Senokot S 8.6-50 MG TAB PO PRN (03:11)
[2019-02-23] MEDS ORDERED: Acetaminophen 325 MG TAB PO PRN (03:11)
[2019-02-23] MEDS ORDERED: Morphine 4 MG/ML VIAL SLOW IVP PRN ×2 (03:12→12:09)
[2019-02-23] MEDS ORDERED: Lorazepam 2 MG/ML VIAL SLOW IVP SCH (03:15)
[2019-02-23] MEDS: Sodium Chloride 0.9% 1,000 ML IV SCH ×3 (04:10→17:43)
--- NOTE | 2019-02-23 06:20 | HP ---
CHIEF COMPLAINT: Fever/nausea, vomiting, and increased output from her ostomy. HISTORY OF PRESENT ILLNESS: The patient is a 29-year-old female with a history of Crohn disease, who presented to the hospital with complaints of nausea, vomiting, fever, and increased output from her colostomy. The patient about 3 to 4 weeks ago, went to the ER in [facility], was diagnosed with rotavirus, which her daughter also had. At that time in [facility], she underwent a CT of the abdomen and pelvis, which indicated possible multiple rectal abscesses. At this time, she was transferred to [place], and was in ICU for about a couple of days. She underwent a surgery and at this time initially the CT scan indicated only 1 abscess, but in surgery, she was found to have a total of 3 abscesses. The patient stated that she had the rotavirus, she had E coli and she also had bacteremia; at which point, she was put on antibiotics and took antibiotics for the whole 2 weeks, that she was in the hospital in [place]. She was then also sent home with penicillin when she was discharged for about a week. The patient at that time also had a colostomy placed by the surgeon in [place]. The patient has a total of 5 seton implants. The patient stated that last week on , she had worsening nausea, vomiting, and increasing watery output from her colostomy. At that time, she went to an urgent care on Monday, where she was given some Zofran and was discharged home. The patient stated that since then she has her baseline nausea and vomiting, with at times increased nausea and vomiting. However, her stool has been with normal consistency until yesterday. The patient stated that yesterday, she changed her colostomy bag about 13 times, which was filling up constantly with just liquids. The patient also had worsening nausea and vomiting and also had a fever for the past couple of days. She had a fever of 101, which made her come into the ER for further evaluation. PAST MEDICAL HISTORY: 1. She has a history of Crohn's. 2. She has had perianal disease. 3. Anemia. 4. Asthma. 5. depression. 6. Elevated LFTs. PAST SURGICAL HISTORY: She has had a cholecystectomy and colonoscopy. Currently, she had a colostomy, EGD and seton placement for perirectal fistulas. FAMILY HISTORY: Negative for any kind of GI malignancy. Her brother has celiac disease. SOCIAL HISTORY: She denies any alcohol use, drug use, or smoking history. She lives with her family and is a full code. ALLERGIES: SHE IS ALLERGIC TO ZOFRAN, DAIRY PRODUCTS, NOVOCAIN AND TAMIFLU. MEDICATIONS: The patient currently is on Stelara. She does not take any steroids and also is on Protonix 40 mg b.i.d. REVIEW OF SYSTEMS: All negative except for the ones mentioned above in the HPI. PHYSICAL EXAMINATION: VITAL SIGNS: Temperature of 98.0, heart rate of 108, respirations are 18, 98% on room air, blood pressure of 110/60. GENERAL: She is awake, alert, and oriented x3. Does not appear in any distress. HEENT: Normocephalic, atraumatic. No lymphadenopathy noted. CV: S1 and S2 present. No murmurs, rubs, or gallops. LUNGS: Clear to auscultation. No rhonchi or wheezes noted. ABDOMEN: Bowel sounds are present x2. She does have pain upon palpation to her right lower quadrant and left lower quadrant. She does have a colostomy, stoma appears stable. She does have some stool in her colostomy bag. EXTREMITIES: No edema. Pedal pulses are present x2. NEUROVASCULAR: No focal deficits noted. SKIN: No cuts, lesions, or bruises noted. She does have seton, which are placed in her buttocks, and rectal area. LABORATORY RESULTS: As of the following: WBCs of 5.2, hemoglobin of 12.6, hematocrit of 40.4, platelets of 311. Chemistry: Sodium of 137, potassium 3.7, BUN of 7, creatinine of 0.84. She did have a CT abdomen and pelvis in the ER, this was with IV contrast, which indicated postsurgical changes of the loops of bowel in the abdomen and evidence of left lower quadrant colostomy. There is a thickening of roque with a loop of small bowel in the pelvis which are fluid-filled, thickened loops of small bowels, likely attribute to inflammatory bowel disease given the patient's clinical history, postsurgical changes, which was thought to be cerclage wires seen in the midline lower gluteal region below the level of the rectum and the anus with wires extending to the subcutaneous soft tissue, medial right lower gluteal region, also subcentimeter tiny fluid collection as well as gas collection just superior to the level of is warranted in the medial right gluteal region, tiny amounts of free fluid in the pelvis. ASSESSMENT AND PLAN: The patient is a very pleasant 29-year-old female, who presents to the hospital with nausea, vomiting, increased colostomy output, and fevers. 1. Abdominal pain. This could be possibly secondary to Crohn's exacerbation versus infectious etiology. The patient stated that she missed two doses of her Stelara. She was supposed to get her last dose last Monday; however, her forgot to give it to her. I have asked her to bring the dose of Stelara to see tomorrow and if GI approves, she can probably get her dose tomorrow. The patient does not have any leukocytosis; however, given her significant infection recently and also her increased output from her ostomy bag, Clostridium difficile and I will also check a stool for leukocytes. I will hold off for now on antibiotics since she just recently got off antibiotics about a week or couple weeks ago. She does not appear to be very toxic appearing; however, she is a very high risk for infection given her recent findings of abscesses in her rectal area. 2. Nausea and vomiting. Start the patient on some IV hydration. We will give some Zofran or Phenergan and also we will put the patient on a PPI. 3. Rectal abscesses with recent colostomy. The patient's output has been significantly elevated. She has changed her bag 13 times. Again, Clostridium difficile and stool for leukocytes have been sent. Gastroenterology has been consulted. We will start her on some IV hydration to avoid any dehydration and continue to monitor. Once infectious is ruled out, possibility it could be Crohn's exacerbation. The patient may be started on Stelara if okay with GI. The other thing could be the patient needs a bulking agent; however, the patient states that she never really has been having this problem except for 2 times, which she has had significant output from her colostomy that has been liquid in nature. 4. Deep venous thrombosis prophylaxis. We will put the patient on subcu Lovenox. Job ID: [id number]
[2019-02-23] MEDS: Enoxaparin Sodium 40 MG/0.4 ML SYRINGE SC SCH (08:27)
[2019-02-23] MEDS ORDERED: Famotidine/PF 20 mg/2ml Vial SLOW IVP SCH (09:00)
[2019-02-23 10:19] LABS: Hemoglobin 10.3 g/dL (12.0-16.0); Mean Corpuscular HGB CONC 31.3 g/dL (32.0-36.0); Mean Corpuscular Hemoglobin 26.5 pg (27.0-31.0); Mean Corpuscular Volume 84.7 fL (78.0-98.0); Mean Platelet Volume 6.9 fL (7.4-10.4); Platelet Count 236 thou/uL (130-400); RBC Distribution Width 13.7 % (11.5-14.5); Red Blood Cell (RBC) Count 3.88 mill/uL (4.20-5.40); White Blood Cell (WBC) Count 3.1 thou/uL (4.8-10.8)
[2019-02-23 10:30] LABS: Anion Gap 9 mmol/L (10-20); BUN (Urea Nitrogen) 5 mg/dL (7.0-18.7); Calc. Creatinine Clearance 0 mL/min (70-130); Calcium 8.2 mg/dL (7.8-10.44); Carbon Dioxide 25 mmol/L (22-29); Chloride 107 mmol/L (98-107); Estimated GFR-MDRD Greater than 90; Glucose 85 mg/dL (70-105); Potassium 3.9 mmol/L (3.5-5.1); Sodium 137 mmol/L (136-145)
[2019-02-23 11:15] LABS: Band 5 % (5-11); Eosinophils 2 % (0-10); Hypochromia SLIGHT = 6-15 cells (100X) (0-5/hpf); Lymphocytes 14 % (21-51); MDiff Complete? YES; Monocytes 12 % (0-10); Neutrophil 66 % (42-75); Platelet Morphology Comment Appears Adequate
[2019-02-23] MEDS ORDERED: Sodium Chloride 0.9% 1,000 ML IV SCH ×2 (12:00→12:30)
--- NOTE | 2019-02-23 12:03 | PDOC.PN ---
- Subjective Encounter Start Date: 02/23/19 Encounter Start Time: 12:02 Patient seen and examined, no new issues, all questions answered. - Objective Resuscitation Status - Order Detail: 02/23/19 03:11 Resuscitation Status Routine Resuscitation Status: FULL: Full Resuscitation Vital Signs & Weight: Vital Signs (12 hours) Temp Pulse Resp BP Pulse Ox 02/23/19 11:53 97.8 F 61 18 90/60 97 02/23/19 07:48 98.2 F 100 18 84/57 L 97 02/23/19 05:00 98 Result Diagrams: 02/23/19 09:57 02/23/19 09:57 Phys Exam - Physical Examination Constitutional: NAD HEENT: PERRLA, moist MMs, sclera anicteric Neck: no nodes, no JVD, supple Respiratory: no wheezing, no rales, no rhonchi Cardiovascular: RRR, no significant murmur, no rub Gastrointestinal: soft, non-tender, no distention Musculoskeletal: no edema, pulses present Dx/Plan (1) Bradycardia Code(s): R00.1 - BRADYCARDIA, UNSPECIFIED Status: Acute (2) Crohns disease Code(s): K50.90 - CROHN'S DISEASE, UNSPECIFIED, WITHOUT COMPLICATIONS Status: Acute (3) Hypotension Status: Acute (4) Nausea vomiting and diarrhea Code(s): R11.2 - NAUSEA WITH VOMITING, UNSPECIFIED; R19.7 - DIARRHEA, UNSPECIFIED Status: Acute - Plan * cont IVFs * BP stable but low, will monitor, asymptomatic * stool studies pending * GI eval pending * cont current plan of care * case and plan d/w patient at length, she understood and agreed with this plan.
[2019-02-23] MEDS ORDERED: Sodium Chloride 0.9% (PF) 10 ML VIAL FS PRN (12:08)
[2019-02-23] MEDS: metroNIDAZOLE 500 MG in Premix Bag 1 BAG IVPB SCH ×2 (12:16→20:59)
[2019-02-23] MEDS: Ondansetron PF 4 MG/2 ML Vial IVP PRN ×2 (12:16→17:41)
[2019-02-23] MEDS: Pantoprazole 40 MG VIAL IVP SCH (12:17)
[2019-02-23] MEDS: HYDROcodone/Acetaminophen 10/325 mg Tablet PO PRN ×2 (13:25→21:03)
[2019-02-23] MEDS: Vancomycin HCl 25 MG/ML Oral PO SCH ×3 (13:26→23:39)
[2019-02-23 14:05] VITALS: BMI 23.0
--- NOTE | 2019-02-23 18:48 | CON ---
DATE OF CONSULTATION: 02/23/2019 REASON FOR CONSULT: Crohn disease and diarrhea. HISTORY OF PRESENT ILLNESS: Ms. Morris is a pleasant 29-year-old female. She actually called me last time on-call with regard to some changes in her symptoms , for which precipitated us to bring her to the emergency room and be admitted. She has a long history of Crohn disease dating back to 2009 with ileal, perianal, and sigmoid colon disease. She reports that most recently, she had been about 3 to 4 weeks ago in [facility] Room with severe diarrhea and was found to be hypotensive and possibly septic and she was transferred to the [facility], where one of her surgeons Dr. Irvin and also one of the gastrologist helped to take care of her, Dr Low. There, she states she was diagnosed with rotavirus also. She was found to have some pelvic abscesses related to her perianal disease. She has had previous setons placed and she had more setons placed and ultimately during that admission, it was decided to give her diverting colostomy to see if they could get some of the perianal disease to improve. She states she was on multiple antibiotics while in the hospital there and then was discharged on ampicillin for another 10 days. She was actually doing fairly well and was at her baseline. When on , she began to have increased diarrhea. She was having some rectal bleeding as well and in the few hours before she called me yesterday evening she drained her colostomy bag 12 times of liquid stool with small amounts of blood. She describes some diffuse abdominal pain and temperature 101 at home when I talked to her. We had her come to the emergency room here. History was confirmed. She was noted to have a blood pressure 123/79 with a pulse of 123 on presentation. She had a temperature of 99.2. She was given some Dilaudid, Reglan, a liter of saline, some Zofran, and had labs performed, which showed a white count of 5.2, hemoglobin 12.6, and a platelet count of 311. Her comp met profile was remarkably normal with a sodium 137, potassium 3.7, BUN and creatinine 7 and 0.8. Her albumin was 4.1 and protein was 7.8. Her lipase was 21. She had cultures obtained for blood. Review showed no growth to-date. Stool for C. diff, which was positive for C diff antigen and toxin. Stool cultures that showed normal nick and positive fecal lactoferrin. I did talk to the emergency room physician, both before and after we saw the patient. A CAT scan was performed, which showed previous cholecystectomy changes, normal liver, pancreas, spleen, adrenals, kidney, and portal vein. There was a surgical anastomosis in the right lower quadrant. It was different from her previous CAT scan from 04/11/2018. There is a right lower quadrant ostomy with long Brandon's pouch. Fluid-filled loops of small bowel with some thickening of loops of small bowel with Radiology felt it is a represent of Crohn's. There is small amount of fluid in the pelvis. There are no fluid collections. There is abscess missed. Retroperitoneum was normal with no large nodes. Uterus appeared normal. There were setons noted in the perianal tissue. There was one subcentimeter fluid collection in perianal region just to the right of midline. There may be just the area of seton drainage. I have talked with the patient this morning. She notes that she has had some ulcers in her esophagus in the past and she will vomit, occasionally seen a little bit of blood in her emesis. She has had no overt clots. She has had continued stool output with no significant bleeding. Her pain is a little bit better. PAST MEDICAL HISTORY: 1. Crohn disease diagnosed in 2009 with ileal disease, sigmoid colon disease, and severe perianal disease. She notes she has had 18 surgeries in the past. Most of these are seem to be perianal surgeries, but more recently last fall, maybe in July, she had an ileal resection with primary anastomosis and just a few months ago, she had a diverting colostomy and more setons placed for severe perianal disease, which resulted in sepsis. Medications in the past include 5-ASA, azathioprine, and then Remicade and then more recently in November of last year Stelara and in July that has gone to q.4 week dosing. She has not had this Stelara in eight weeks; however, secondary to her hospitalization and surgery. 2. She has had some severe PTSD and depression. She has a very sick and he has colon cancer as well. 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 She has been seen by Behavioral Health in the past. 3. Low vitamin D levels. PAST SURGICAL HISTORY: Include colonoscopies, upper and lower endoscopies, seton placed for perianal disease, and recent diverting colostomy. The liver resection last fall and she has had a previous cholecystectomy. SOCIAL HISTORY: No alcohol, drugs, or tobacco. 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 ALLERGIES: PHENERGAN, DAIRY PRODUCTS, AND NOVOCAIN. ALSO SHE STATES THAT LIQUIDS WITH KIVALINA ARCHIBALD FLAVORED, SHE CANNOT TAKE. REPORTS THAT SHE HAS HAD PARADOXICAL PSYCHOTIC REACTION TO STEROIDS. ZOFRAN, NOVOCAIN, AND TAMIFLU. FAMILY HISTORY: Negative for GI malignancy. She has a brother with celiac disease. MEDICATIONS: 1. Stelara 90 q.4 weeks, which she has not had it in eight weeks. 2. She is also on Protonix b.i.d. 3. She has had viscous lidocaine in the past only for oral ulcers. 4. She has recently been on antibiotics, which she finished 10 days ago. 5. Tylenol. 6. Lovenox. 7. Pepcid. 8. [place]. 9. Morphine. 10. Normal saline 100. REVIEW OF SYSTEMS: Negative for rashes, myalgias, or arthralgias. Negative for oral ulcers or lesions. Negative for dysuria, frequency, or urgency. Negative for cough or shortness of breath. Negative for chest pain. Positive for chronic nausea and vomiting. PHYSICAL EXAMINATION: VITAL SIGNS: On admission, her temperature was 98, pulse rate of 108 after hydration, and blood pressure 110/60. Presently this morning, temperature 97, pulse of 61, and blood pressure is 84/57 to 90/60. GENERAL: She is resting comfortably in bed. She is alert and oriented to person, place, and time. She is somewhat pale. HEENT: Conjunctivae and sclerae are clear. LUNGS: Clear. HEART: Regular rate and rhythm. ABDOMEN: Soft, it is mildly tender without rebound or guarding. PELVIS: No clubbing, cyanosis, or edema. Perianal area reveals seton with no overt large fissures or abscesses. The patient does not rectal exam. Turgor slightly pale, EXTREMITIES: No clubbing, cyanosis, or edema. No turgor slightly poor. NEUROLOGIC: She is alert and orient to person, place, and time. She has appropriate affect and is mildly depressed. LABORATORY DATA: Labs this morning; white count 3.1, hemoglobin 10.3, and platelet count 233. Sodium 137, potassium 3.9, chloride 107, bicarb 25, BUN 5, creatinine 0.7. Her magnesium yesterday was 2. ASSESSMENT: 1. Severe Crohn's with complications including previous ileal resection more recently, she had sepsis from perianal disease and was in [place] in the hospital, treated in the ICU, was on IV antibiotics and then switched to p.o. She does have one small subcentimeter fluid collection on CT now, but no overt evidence of pelvic sepsis. She has had multiple setons placed in her diverting colostomy. As far as her inflammatory bowel disease goes, it seems she does have some thickened loops of small bowel. At this time, this could be related to the C. diff that was found more right likely related to her Crohn disease. She has been off her Stelara for over eight weeks. 2. Hypertension. Does not appear overtly septic at this point in time, likely is related to volume loss. She has had a liter of fluid and then is getting 100 mL an hour and probably has had more losses that over the past 24 hours. She does need a fluid bolus. We will need to watch her electrolytes closely and recheck her phosphorus as well. 3. Clostridium difficile. She has positive fecal leukocytes. This could be from her Crohn's, but she has positive Clostridium difficile antigen and positive toxin in the setting of her recently prolonged antibiotics in [place] recently with finishing antibiotics 10 days ago. It is consistent with. There is no overt signs of severe colitis on her CT, but she has had an abrupt increase in output of her colostomy bag in the past 24 hours. We will need to go and treat this aggressively with IV Flagyl and p.o. vancomycin as well as a probiotic. 4. History of esophageal ulcers. We will stop her Pepcid and place her on a proton pump inhibitor. 5. We will check a sedimentation rate. 6. We will check cortisol for possible adrenal insufficiency. I have asked to have her bring her Stelara and we will get her an injection here. She has been off for 8 weeks. She had no contraindication with the Clostridium difficile. There is no reported increased incidences or worsening outcome with biologic therapy. We will follow along closely with you. Job ID: [id number] [facility] HOSPITALTeressa
[2019-02-24] MEDS: Sodium Chloride 0.9% 1,000 ML IV SCH ×3 (02:40→12:32)
[2019-02-24] MEDS: metroNIDAZOLE 500 MG in Premix Bag 1 BAG IVPB SCH ×3 (06:20→21:22)
[2019-02-24] MEDS: Vancomycin HCl 25 MG/ML Oral PO SCH ×4 (06:20→23:40)
[2019-02-24] MEDS: HYDROcodone/Acetaminophen 10/325 mg Tablet PO PRN ×2 (06:34→18:00)
[2019-02-24] MEDS: Ondansetron PF 4 MG/2 ML Vial IVP PRN ×3 (06:35→18:00)
[2019-02-24] MEDS: Pantoprazole 40 MG VIAL IVP SCH (08:32)
[2019-02-24] MEDS: Enoxaparin Sodium 40 MG/0.4 ML SYRINGE SC SCH (08:33)
[2019-02-24] MEDS: Lorazepam 1 MG TAB PO PRN ×2 (10:19→21:26)
--- NOTE | 2019-02-24 11:43 | PDOC.PN ---
- Subjective Encounter Start Date: 02/24/19 Encounter Start Time: 11:41 Patient seen and examined, no new issues or complaints, al questions answered. - Objective Resuscitation Status - Order Detail: 02/23/19 03:11 Resuscitation Status Routine Resuscitation Status: FULL: Full Resuscitation Vital Signs & Weight: Vital Signs (12 hours) Temp Pulse Resp BP BP Pulse Ox 02/24/19 11:35 98.1 F 88 20 103/66 96 02/24/19 07:47 98.1 F 88 20 91/59 L 96 02/24/19 04:35 98.1 F 78 20 90/61 98 02/23/19 23:52 98.0 F 67 20 99/66 98 Weight Admit Weight 130 lb Weight 130 lb I&O: 02/23/19 02/24/19 02/25/19 06:59 06:59 06:59 Intake Total 4880 Output Total 30 Balance 4850 Result Diagrams: 02/23/19 09:57 02/23/19 09:57 Phys Exam - Physical Examination Constitutional: NAD HEENT: PERRLA, moist MMs, sclera anicteric Neck: no nodes, no JVD, supple Respiratory: no wheezing, no rales, no rhonchi Cardiovascular: RRR, no significant murmur, no rub Gastrointestinal: soft, non-tender, no distention, positive bowel sounds Musculoskeletal: no edema, pulses present Dx/Plan (1) Bradycardia Code(s): R00.1 - BRADYCARDIA, UNSPECIFIED Status: Acute (2) Crohns disease Code(s): K50.90 - CROHN'S DISEASE, UNSPECIFIED, WITHOUT COMPLICATIONS Status: Acute (3) Hypotension Status: Acute (4) Nausea vomiting and diarrhea Code(s): R11.2 - NAUSEA WITH VOMITING, UNSPECIFIED; R19.7 - DIARRHEA, UNSPECIFIED Status: Acute - Plan * Patient states she's still throwing up after each meal and nauseous * having abd pain, improved form before but still present * on IV flagyl and PO vanc, + for C-diff * crohn's flare as well, GI following, on meds * cont current plan of care for now * refusing labs as she states she's getting bruised * cont IVFs for BP, patient seems convinced somehow that the fluids are causing her BP to go down, she was informed that this as to help her BP go up and its not possible for normal saline to drop blood pressure * case and plan d/w patient at length, she understood and agreed with this plan
[2019-02-24 12:44] LABS: #Eosinphils 0.1 thou/uL (0.0-0.7); #Lymphocytes 0.4 thou/uL (1.20-3.40); #Monocytes 0.3 thou/uL (0.11-0.59); #Neutrophils 1.8 thou/uL (1.40-6.50); %Basophils 0.5 % (0.0-1.0); %Eosinophils 3.3 % (0.0-10.0); %Lymphocytes 15.9 % (21.0-51.0); %Monocytes 11.8 % (0.0-10.0); %Neutrophils 68.5 % (42.0-75.0); Hemoglobin 11.1 g/dL (12.0-16.0); Mean Corpuscular HGB CONC 31.4 g/dL (32.0-36.0); Mean Corpuscular Hemoglobin 26.7 pg (27.0-31.0); Mean Platelet Volume 6.7 fL (7.4-10.4); Platelet Count 223 thou/uL (130-400); RBC Distribution Width 13.4 % (11.5-14.5); Red Blood Cell (RBC) Count 4.14 mill/uL (4.20-5.40); White Blood Cell (WBC) Count 2.6 thou/uL (4.8-10.8)
[2019-02-24 13:08] LABS: ALT (SGPT) 10 U/L (8-55); AST (SGOT) 14 U/L (5-34); Albumin 3.3 g/dL (3.5-5.0); Alkaline Phosphatase 80 U/L (40-150); Anion Gap 11 mmol/L (10-20); BUN (Urea Nitrogen) Less than 4 mg/dL (7.0-18.7); Bilirubin, Total 0.2 mg/dL (0.2-1.2); Calc. Creatinine Clearance 122 mL/min (70-130); Calcium 8.5 mg/dL (7.8-10.44); Carbon Dioxide 22 mmol/L (22-29); Chloride 108 mmol/L (98-107); Estimated GFR-MDRD Greater than 90; Globulin 2.8 g/dL (2.4-3.5); Glucose 75 mg/dL (70-105); Magnesium 1.6 mg/dL (1.6-2.6); Phosphorus 3.5 mg/dL (2.3-4.7); Potassium 3.1 mmol/L (3.5-5.1); Protein, Total 6.1 g/dL (6.0-8.3); Sodium 138 mmol/L (136-145)
[2019-02-24] MEDS: Dextrose 5 % And 0.9 % NaCl 1,000 ML IV SCH ×2 (14:16→23:41)
[2019-02-24] MEDS: Potassium Chloride 20 MEQ TAB PO SCH (14:16)
--- NOTE | 2019-02-24 14:18 | PRG ---
DATE OF SERVICE: 02/24/2019 SUBJECTIVE: Ms. Morris states she feels better. She states it is the liquid diet she really cannot tolerate because a lot of them have asa'carsarmiut and lemon and pritchett, which she cannot drink without getting nauseated. She was not able to take her p.o. vancomycin per the nurses secondary to being nauseated. The nurse called me and I told her she could go to a bland diet and she is going to try to take her medicines with that. We are going to give her vancomycin now. The nurse tells me now that she did take it. She remains on IV Flagyl as well. She wants to go home. She states her son is graduating from kindergarten tomorrow. Although she is still having some diarrhea - 3 to 4 times yesterday. OBJECTIVE: GENERAL: Presently, she is in no distress. VITAL SIGNS: Temperature is 98.1, she has been afebrile overnight, pulse is 88 , and blood pressure is 103/66. ABDOMEN: Soft. She is copy lathe tender diffusely without rebound or guarding. LUNGS: Clear. She does not appear to be pale. LABORATORY DATA: White count is 2.6, hemoglobin is 11.1, and platelet count 223. Sodium 137, potassium 3.9, BUN and creatinine are 5 and 0.7. Cortisol was 8.3. Yesterday. Blood cultures negative today. ASSESSMENT: 1. Clostridium difficile colitis. 2. Crohn disease with perianal disease, status post pelvic sepsis with placement of more setons. Apparently, this is improved now. 3. Increased stress and anxiety related to her illness, small children in home, and her 's history of colon malignancy. RECOMMENDATIONS: Continue IV Flagyl and p.o. vancomycin. Advance diet as tolerated. Continue IV fluids. Recheck labs tomorrow, electrolytes. Job ID: [id number] [facility]
[2019-02-25] MEDS: metroNIDAZOLE 500 MG in Premix Bag 1 BAG IVPB SCH (06:08)
[2019-02-25] MEDS: Vancomycin HCl 25 MG/ML Oral PO SCH (06:08)
[2019-02-25 07:19] LABS: Anion Gap 11 mmol/L (10-20); BUN (Urea Nitrogen) Less than 4 mg/dL (7.0-18.7); Calc. Creatinine Clearance 114 mL/min (70-130); Calcium 8.2 mg/dL (7.8-10.44); Carbon Dioxide 20 mmol/L (22-29); Chloride 109 mmol/L (98-107); Estimated GFR-MDRD Greater than 90; Glucose 100 mg/dL (70-105); Potassium 3.6 mmol/L (3.5-5.1); Sodium 136 mmol/L (136-145)
[2019-02-25 08:01] VITALS: BP 100/66; TEMP 98.1
[2019-02-25] MEDS: Ondansetron PF 4 MG/2 ML Vial IVP PRN (08:05)
[2019-02-25] MEDS: Pantoprazole 40 MG VIAL IVP SCH (08:05)
[2019-02-25] MEDS: Potassium Chloride 20 MEQ TAB PO SCH (08:06)
[2019-02-25] MEDS: Dextrose 5 % And 0.9 % NaCl 1,000 ML IV SCH (08:07)
[2019-02-25] MEDS: Enoxaparin Sodium 40 MG/0.4 ML SYRINGE SC SCH (08:07)
[2019-02-25] MEDS: HYDROcodone/Acetaminophen 10/325 mg Tablet PO PRN (10:27)
--- NOTE | 2019-02-25 11:32 | PRG ---
DATE OF SERVICE: 02/25/2019 SUBJECTIVE: Ms. Morris has had stools that were now paste-like. No blood in her ostomy bag. She has had a little bit of rectal bleeding still and does have some discomfort there still, but is not worsening. It is very similar to what she had prior to admission. She has had no vomiting. She has been able to tolerate liquids and told her p.o. potassium and vancomycin. OBJECTIVE: VITAL SIGNS: Temperature 98, pulse 98 to 96, and blood pressure 100/66. LUNGS: Clear. HEART: Regular rate and rhythm without clicks, rubs, or murmurs. ABDOMEN: Soft and mildly tender without rebound or guarding. EXTREMITIES: No clubbing, cyanosis, or edema. LABORATORY STUDIES: White count 2.6, hemoglobin 11.4, platelet count 223, and no bands. Sodium 136, potassium 3.6, BUN and creatinine are 11 and 4, chloride 109, bicarb 20, and anion gap 7. ASSESSMENT: 1. Clostridium difficile colitis. There was no significant colitis on her CAT scan. She never had a leukocytosis. She did have fever at home, but not here in the hospital. She has a benign abdomen and her diarrhea is stopping with IV Flagyl and p.o. vancomycin. 2. Hypokalemia from diarrhea and volume depletion, resolved with p.o. supplement. 3. Dehydration and tachycardia on presentation, resolved. 4. Crohn disease with enteritis on her CT, but no evidence of abscesses or abdominal sepsis. 5. History of perirectal abscesses and fistulas, status post multiple Setons in [place] a few weeks ago. There were no abscesses seen or enlarged lymph nodes. There is one subcentimeter fluid collection in the perineal region, slight gas density disappeared after her Seton. On clinical exam, no overt abscess detected. 6. I suspect some of her symptoms may be related to Crohn's flare. She had not been on her Stelara for over 8 weeks, that was the time she was in the hospital last admission in [place] and since discharge indefinitely, she had Clostridium difficile clinically with positive stool Clostridium difficile toxin antigen and abrupt onset of symptoms about 10 days after finishing antibiotics with which she was discharged with from her last admission in [place]. RECOMMENDATIONS: I asked her to stay one more day to stop IV fluids and make sure she can maintain hydration, but she is adamant to leave and was going to leave [place] because her kindergartener is graduating from kindergarten today and she does not want to miss that. As she is stable and her electrolytes have been replaced, her vital signs are stable and her diarrhea is reducing, we are going to let her go home with vancomycin q.i.d. 250 for 14 days, probiotics for 6 weeks, and potassium pills 20 mEq daily for 7 days. She has been given precautions on C. diff and handwashing as well sterilization of bathroom and washing all sheets and clothing at home, which her has already done. I have also given precautions about 20% risk of recurrence easily within a few days to few weeks of concluding the vancomycin. If she has progressive symptoms anyway, she is to contact us immediately. I have conveyed details of her hospitalization with Dr. Pena, her primary mercerizing range controller here and also Dr. Mitchell Low, her mercerizing range controller in [place]. Job ID: [id number]
--- NOTE | 2019-02-25 23:53 | DIS ---
DATE OF ADMISSION: 02/23/2019 DATE OF DISCHARGE: 02/25/2019 PRIMARY CARE PHYSICIAN: Dr. Disha Wiley. PRIMARY BUSINESS OFFICE ASSOCIATE: Dr. Mitchell Low in [place]. DISCHARGE DIAGNOSES: 1. Clostridium difficile colitis. 2. Diarrhea and volume depletion leading to hypokalemia. 3. Dehydration and tachycardia on presentation, resolved. 4. Crohn disease with enteritis without evidence of abscess or abdominal sepsis. 5. History of perirectal abscesses and fistula. DISCHARGE MEDICATIONS: 1. Vancomycin 125 mg p.o. q.i.d. 250 mg q.i.d. for 14 days and probiotic for 6 weeks. 2. Potassium 20 mEq daily for 7 days. Resume home medications as follows: 1. [place] p.r.n. 2. Albuterol inhaler p.r.n. 3. Zofran p.r.n. 4. Stelara as directed. 5. Lorazepam p.r.n. 6. Viscous lidocaine p.r.n. IN-HOUSE CONSULTATION: Gastroenterology, Dr. Feng. PROCEDURES DONE IN THE HOSPITAL: CT scan of the abdomen and pelvis, which shows postsurgical changes of loops of bowel in the abdomen with evidence of left lower quadrant colostomy and thickening of the roque of loops of small bowel in the pelvis, which are fluid-filled, consistent with patient's history of inflammatory bowel disease. There are no acute changes. HISTORY OF PRESENTING ILLNESS: Ms. Morris is a pleasant 29-year-old female with past medical history of Crohn disease, asthma, chronic anemia, depression, elevated LFTs, who presented to the emergency room with complaints of fever, nausea, vomiting, and increased ostomy output. Upon presentation, she gave the history of recent hospitalization in [facility]. She has reported that she was diagnosed with rotavirus at the local ER in [place], was transferred to [facility] for possible rectal abscesses. There, she underwent diverting colostomy. She called her dining car server on-call because of increased amount of stool in her colostomy bag associated with blood. She also complains of some diffuse abdominal pain and a fever of 101 at home. She was told to come to the emergency room by her dining car server, Dr. Feng. Upon presentation, she was otherwise hemodynamically stable. A CT scan of the abdomen and pelvis was done in the ER, which did not have any acute changes. She was admitted for further evaluation and Gastroenterology was consulted. Please see admission history and physical, which is extensively dictated by Dr. Jackson on 02/23/2019, for full details. The patient has had a quite complicated past medical history with regard to her Crohn disease, which is beautifully outlined in the H and P. HOSPITAL COURSE: The patient was seen by Dr. Feng. By that time, her stool studies have come back and she was found to be positive for Clostridium difficile antigen and toxin. She was started on oral vancomycin. Rest of her blood culture and stool cultures were negative. She had clinical improvement with reduction in the diarrheal stools. She otherwise remained hemodynamically stable. As of this morning, the patient is adamant to be discharged. She has been evaluated by Dr. Feng who called me and because the patient has stable electrolytes and is asymptomatic, she will be discharged on oral vancomycin. IV Flagyl has been stopped. She was found to be mildly hypokalemic in the hospital, which was treated. She will follow up with her own dining car server in [facility]. Locally, she follows up with Dr. Pena. I have seen and examined the patient prior to discharge. PHYSICAL EXAMINATION: VITAL SIGNS: This morning, temperature 98.1, pulse of 98, respirations 16, saturating 96% on room air, blood pressure 100/66. GENERAL: No acute distress. Awake, alert, and oriented x3. CHEST: Clear to auscultation bilaterally. HEART: Rate and rhythm regular. ABDOMEN: Her colostomy bag has soft formed stools without any evidence of blood. The patient is stable to be discharged. DISCHARGE PLAN: Discharge plan was discussed with the patient who verbalized understanding. She is back to her baseline. TIME SPENT: Total time spent in the discharge of this patient, 32 minutes. Job ID: [id number]
== END 2019-02-25 11:00 | disposition home or self-care (01) | DRG 372 ==
LOC: ERS 21:21 → T4-A 02-23 03:36
PROVIDERS: ADMIT Internal Medicine; ATTEND Internal Medicine
DX: A04.72 Enterocolitis due to Clostridium difficile, not specified as recurrent (principal); K50.90 Crohn's disease, unspecified, without complications; J45.909 Unspecified asthma, uncomplicated; D64.9 Anemia, unspecified; F41.9 Anxiety disorder, unspecified; E87.6 Hypokalemia; E86.0 Dehydration; K52.89 Other specified noninfective gastroenteritis and colitis; Z88.8 Allergy status to other drugs, medicaments and biological substances; Z91.011 Allergy to milk products; Z88.1 Allergy status to other antibiotic agents; Z88.2 Allergy status to sulfonamides; Z79.899 Other long term (current) drug therapy; Z93.3 Colostomy status
CPT/HCPCS: 36415; 74177; 80048; 80053; 82533; 83605; 83630; 83690; 83735; 84100; 85025; 86850; 86900; 86901; 87040; 87045; 87046; 87324; 87449; 87493; 87899; 96361; 96365; 96375; 96376; C9113; J1170; J1650; J2405; J2765; Q9966; S0028

== ENCOUNTER 2019-04-26 11:45 | Outpatient (CLI) | payer OTHER, MEDICARE ==
[2019-04-26] MEDS ORDERED: Sodium Chloride 0.9% 20 ML ONE (13:13)
== END 2019-04-26 11:46 | disposition home or self-care (01) ==
LOC: MRI 11:45
PROVIDERS: ATTEND Physician Assistant Medical
DX: K50.813 Crohn's disease of both small and large intestine with fistula (principal); R10.9 Unspecified abdominal pain; R94.5 Abnormal results of liver function studies
CPT/HCPCS: 82565; J1610

== ENCOUNTER 2019-04-26 16:13 | Inpatient (IN) | payer OTHER, MEDICARE ==
[2019-04-26 17:55] LABS: #Eosinphils 0.1 thou/uL (0.0-0.7); #Lymphocytes 0.8 thou/uL (1.20-3.40); #Monocytes 0.5 thou/uL (0.11-0.59); #Neutrophils 6.8 thou/uL (1.40-6.50); %Basophils 0.4 % (0.0-1.0); %Eosinophils 0.8 % (0.0-10.0); %Lymphocytes 9.3 % (21.0-51.0); %Monocytes 6.4 % (0.0-10.0); %Neutrophils 83.1 % (42.0-75.0); Mean Corpuscular HGB CONC 31.8 g/dL (32.0-36.0); Mean Corpuscular Hemoglobin 25.9 pg (27.0-31.0); Mean Corpuscular Volume 81.6 fL (78.0-98.0); Mean Platelet Volume 6.9 fL (7.4-10.4); Platelet Count 230 thou/uL (130-400); RBC Distribution Width 12.5 % (11.5-14.5); Red Blood Cell (RBC) Count 5.02 mill/uL (4.20-5.40); White Blood Cell (WBC) Count 8.2 thou/uL (4.8-10.8)
[2019-04-26 18:17] LABS: ALT (SGPT) 12 U/L (8-55); AST (SGOT) 15 U/L (5-34); Albumin 3.8 g/dL (3.5-5.0); Alkaline Phosphatase 76 U/L (40-150); Anion Gap 12 mmol/L (10-20); BUN (Urea Nitrogen) 9 mg/dL (7.0-18.7); Bilirubin, Total 0.3 mg/dL (0.2-1.2); Calc. Creatinine Clearance 0 mL/min (70-130); Calcium 9.1 mg/dL (7.8-10.44); Carbon Dioxide 23 mmol/L (22-29); Chloride 105 mmol/L (98-107); Estimated GFR-MDRD 85; Globulin 3.2 g/dL (2.4-3.5); Glucose 83 mg/dL (70-105); Lipase 16 U/L (8-78); Magnesium 1.9 mg/dL (1.6-2.6); Sodium 136 mmol/L (136-145)
[2019-04-26 18:18] LABS: BHCG - Serum Negative (NEGATIVE); Pregs Control Background? CLEAR/WHITE (CLR/WHITE); Pregs Control Bar Appear? YES (CONTROL BAR)
[2019-04-26] MEDS ORDERED: Ondansetron PF 4 MG/2 ML Vial ONE (18:29)
--- NOTE | 2019-04-26 18:55 | RAD ---
Frontal radiograph chest 2 views of abdomen: 04/26/2019 HISTORY: 2 month history of abdominal pain FINDINGS: Lungs are clear. Heart and mediastinal contours are unremarkable. Clips in the right upper quadrant suggest prior cholecystectomy. No evidence for bowel obstruction or free intraperitoneal air. There is a suture line within the right lower quadrant. IMPRESSION: Postoperative changes as detailed above. No evidence for free intraperitoneal air or smal l bowel obstruction.
[2019-04-26 19:17] LABS: Bilirubin Negative (Negative); Blood, Urine Negative (Negative); Clarity Clear (Clear); Glucose, Urine (Dipstick) Normal (Negative); Leukocyte Negative Leu/uL (Negative); Nitrite Negative (Negative); Protein, Urine (Dipstick) 10 mg/dL (Neg-Trace); Urobilinogen Normal mg/dL (Less than 2)
[2019-04-26 20:54] VITALS: BMI 21.9
[2019-04-26] MEDS: HYDROcodone/Acetaminophen 7.5/325 mg Tablet PO SCH ×2 (21:26→22:10)
[2019-04-26] MEDS ORDERED: Promethazine HCl 25 MG in Sodium Chloride 0.9% 50 ML IVPB PRN (21:57)
[2019-04-26] MEDS ORDERED: Morphine 2 MG/ML SYRINGE SLOW IVP PRN (21:59)
--- NOTE | 2019-04-26 22:03 | CON ---
DATE OF CONSULTATION: 04/26/2019 CHIEF COMPLAINT: Abdominal pain and nausea. HISTORY OF PRESENT ILLNESS: Ms. Morris is a 29-year-old woman with complicated Crohn's disease who tried to undergo MR enterography today, however, she vomited some of the prep and then developed worsening pain around her stoma that then radiates from the left side of the abdomen towards the right upper abdomen and then the pain itself worsens the nausea. She has been followed by Dr. Pena here locally and Dr. Low in [place], as well as Dr. Irvin with Colorectal surgery in [place]. She underwent surgery to her stoma and drainage of her perirectal abscess and required ICU admission in [place] around 8 or 9 weeks ago. Since then, she has been to the emergency room either at [facility] or in [place] around once a week to get IV fluids and antiemetics and also reportedly pain control. She apparently has been taking [place] once in the morning and once in the evening. She states that she has been taking Dilaudid for the pain when she is in the hospital, because she is allergic to morphine. Today, when she attempted to complete the MR enterography, she became very anxious and states she had a panic attack and could not complete the MRI. She normally takes Ativan a mg tablet at a time, but did not take it prior to the MRI. Due to the vomiting and pain following the MRI, she came onto the emergency room and here she has received IV fluids and Bentyl and is feeling better overall. She still gets periods of cramping pain around the stoma that shoots over to the right side that last for seconds at a time and then eases away and she is pain free between these episodes. She is having no further vomiting. She had an x-ray in the emergency room that shows no obstruction. PAST MEDICAL HISTORY: 1. Complicated Crohn's disease of the small and large bowel with fistula and perianal disease requiring prior colon resection and ostomy. 2. Asthma. 3. Elevated liver tests. 4. depression. 5. Worsening of anxiety and depression when she received steroids and now we are trying to avoid the steroids and she will not take them anyway. PAST SURGICAL HISTORY: Cholecystectomy, colonoscopy, colon resection with colostomy, perianal fistula drainage and Seton placement. FAMILY HISTORY: Her brother has celiac disease. SOCIAL HISTORY: No alcohol, tobacco, or drugs. Her has advanced colon cancer. He is currently out of town and she was able to find someone to help take her care of her kids this evening. ALLERGIES: 1. ZOFRAN. 2. NOVOCAIN. 3. MORPHINE. MEDICATIONS: As an outpatient include: 1. Dicyclomine. 2. Promethazine. 3. Stelara. She had been on Stelara every 4 weeks and now we are trying to get approval for Stelara every 2 weeks, which she has taken at this dosing interval over the last couple of doses. 4. She also takes Advair. 5. Azathioprine 50 mg tablets 2.5 tablets daily. 6. Colestipol. 7. Esomeprazole. 8. Hydrocodone 10 mg tablets. 9. Lorazepam 1 mg tablet. 10. ProAir. REVIEW OF SYSTEMS: Negative x10 systems reviewed except as stated in the history of present illness. PHYSICAL EXAMINATION: VITAL SIGN: Blood pressure 107/68, pulse 86, temperature 98.0. GENERAL: She is in no acute distress. She is alert and oriented x3. HEENT: Eyes have no scleral icterus. Oropharynx is clear without lesions. NECK: No cervical or supraclavicular lymphadenopathy. LUNGS: Clear to auscultation bilaterally. HEART: Regular rate and rhythm without murmur. ABDOMEN: Soft. She does have tenderness in the lower abdomen, but no guarding. Her bowel sounds are present. EXTREMITIES: No lower extremity edema. Cranial nerves are grossly intact. LABORATORY DATA: White blood cell count 8.2, hemoglobin 13.0, platelets 230. Creatinine 0.79, bilirubin 0.3, AST 15, ALT 12, alkaline phosphatase 76, albumin 3.8, lipase 16. Serum test is negative. IMPRESSION: 1. Complicated small and large bowel Crohn's disease with penetrating fistulizing disease and perianal disease. She now has a colostomy, but also apparent strictures proximal to the colostomy. MR enterography has been requested by Dr. Pena and Dr. Low to help determine next step in care. She is on azathioprine as well as Stelara now up to every 2 weeks. She did not tolerate the contrast or the MRI machine due to anxiety and vomited today. Abdominal x-ray in the ER shows no obstruction. She still gets periodic spasms of pain around the stoma that radiates over to the right. She is pain free between those episodes. RECOMMENDATIONS: She is being admitted to the hospital for nausea and pain control. Currently, she is having no ongoing vomiting and her pain is adequately controlled. We discussed the importance of trying to get this MRI and options for trying to make her able to tolerate that. She is on opioids and benzodiazepines at baseline. I think she will need dose of medications immediately prior to the MRI to help her tolerate that. Plan is for MR enterography tomorrow morning. That is MRI abdomen and pelvis with enterography protocol. We will give IV dose of Ativan and 1 mg and a dose of Dilaudid IV as well as ondansetron immediately prior to the MRI. She can also receive a dose of dicyclomine orally before as well. She did receive a dose of IM dicyclomine in the ER, which she now reports as painful and we would rather avoid that. We will support her with IV fluids this evening as well. She can have a clear liquid diet tonight and then n.p.o. past midnight. Job ID: [id number]
[2019-04-26] MEDS: Ondansetron PF 4 MG/2 ML Vial IVP PRN (22:13)
[2019-04-26] MEDS ORDERED: Acetaminophen 650 MG Suppository PR PRN (22:18)
[2019-04-26] MEDS ORDERED: Acetaminophen 325 MG TAB PO PRN (22:18)
[2019-04-26] MEDS: Fentanyl 100 MCG/2 ML VIAL SLOW IVP PRN (22:31)
[2019-04-27] MEDS: Fentanyl 100 MCG/2 ML VIAL SLOW IVP PRN ×4 (02:22→12:28)
[2019-04-27] MEDS: Ondansetron PF 4 MG/2 ML Vial IVP PRN ×4 (02:22→22:06)
[2019-04-27] MEDS ORDERED: Ondansetron ODT 8 MG TAB PO PRN (05:58)
[2019-04-27] MEDS ORDERED: hydrALAZINE 20 MG/ML VIAL SLOW IVP PRN (07:50)
[2019-04-27] MEDS ORDERED: Cepastat Lozenges 1 LOZ PO PRN (07:50)
[2019-04-27] MEDS ORDERED: Sodium Chloride 0.65% Nasal 44 ML BOT EA NARE PRN (07:50)
[2019-04-27] MEDS ORDERED: Loratadine 10 MG TAB PO PRN (07:50)
[2019-04-27] MEDS ORDERED: Ondansetron ODT 4 MG TAB PO PRN (07:50)
[2019-04-27] MEDS ORDERED: Artificial Tears 18 DROP/0.9 ML EA EYE PRN (07:50)
[2019-04-27] MEDS ORDERED: Calcium Carbonate 500 MG ChewTAB PO PRN (07:50)
[2019-04-27] MEDS ORDERED: Diabetic Tussin 200 MG/10 ML UDCUP PO PRN (07:50)
[2019-04-27] MEDS ORDERED: HYDROcodone/Acetaminophen 10/325 mg Tablet PO SCH (08:00)
[2019-04-27] MEDS ORDERED: Dicyclomine 10 MG CAP PO SCH (08:00)
[2019-04-27] MEDS ORDERED: Ondansetron ODT 8 MG TAB PO SCH (08:00)
[2019-04-27] MEDS ORDERED: Lorazepam 1 MG TAB PO SCH (08:00)
[2019-04-27 09:26] LABS: #Eosinphils 0.1 thou/uL (0.0-0.7); #Monocytes 0.6 thou/uL (0.11-0.59); #Neutrophils 3.2 thou/uL (1.40-6.50); %Basophils 0.7 % (0.0-1.0); %Eosinophils 2.7 % (0.0-10.0); %Lymphocytes 19.8 % (21.0-51.0); %Monocytes 11.9 % (0.0-10.0); %Neutrophils 64.9 % (42.0-75.0); Hemoglobin 12.1 g/dL (12.0-16.0); Mean Corpuscular HGB CONC 30.6 g/dL (32.0-36.0); Mean Corpuscular Hemoglobin 25.7 pg (27.0-31.0); Platelet Count 213 thou/uL (130-400); RBC Distribution Width 12.5 % (11.5-14.5); Red Blood Cell (RBC) Count 4.71 mill/uL (4.20-5.40); White Blood Cell (WBC) Count 4.9 thou/uL (4.8-10.8)
[2019-04-27 09:48] LABS: Anion Gap 15 mmol/L (10-20); BUN (Urea Nitrogen) 11 mg/dL (7.0-18.7); Calc. Creatinine Clearance 108 mL/min (70-130); Calcium 8.6 mg/dL (7.8-10.44); Carbon Dioxide 18 mmol/L (22-29); Chloride 108 mmol/L (98-107); Estimated GFR-MDRD Greater than 90; Glucose 61 mg/dL (70-105); Potassium 3.7 mmol/L (3.5-5.1); Sodium 137 mmol/L (136-145)
--- NOTE | 2019-04-27 11:12 | PDOC.PN ---
- Subjective Encounter Start Date: 04/27/19 Encounter Start Time: 08:15 Patient seen and examined. No new complaints. No overnight events as per pt this is chronic for her that during sleep her Bp and heart rate gets low, but during awake she does not have any symptoms - Objective Resuscitation Status - Order Detail: 04/26/19 22:18 Resuscitation Status Routine Resuscitation Status: FULL: Full Resuscitation MAR Reviewed: Yes Vital Signs & Weight: Vital Signs (12 hours) Temp Pulse Resp BP BP Pulse Ox 04/27/19 07:52 98.5 F 73 18 98/61 99 04/27/19 05:00 98.5 F 94 16 94/69 98 04/27/19 02:18 75 18 111/77 04/27/19 01:22 98.5 F 70 16 81/56 L 96 Weight Weight 128 lb Result Diagrams: 04/27/19 09:18 04/27/19 09:18 Phys Exam - Physical Examination Constitutional: NAD HEENT: PERRLA, moist MMs, sclera anicteric Neck: no JVD, supple Respiratory: no wheezing, no rales, no rhonchi Cardiovascular: RRR, no significant murmur, no rub Gastrointestinal: soft, non-tender, no distention, positive bowel sounds colostomy+ Musculoskeletal: no edema, pulses present Neurological: non-focal, normal sensation, moves all 4 limbs Lymphatic: no nodes Psychiatric: normal affect, A&O x 3 Skin: no rash, normal turgor Dx/Plan (1) Nausea & vomiting Code(s): R11.2 - NAUSEA WITH VOMITING, UNSPECIFIED Status: Acute (2) Crohn's disease of both small and large intestine with fistula Code(s): K50.813 - CROHN'S DISEASE OF BOTH SMALL AND LARGE INTESTINE W FISTULA Status: Chronic Comment: and perianal disease required colon resection and colostomy (3) Asthma Code(s): J45.909 - UNSPECIFIED ASTHMA, UNCOMPLICATED Status: Acute (4) Anxiety and depression Code(s): F41.9 - ANXIETY DISORDER, UNSPECIFIED; F32.9 - MAJOR DEPRESSIVE DISORDER, SINGLE EPISODE, UNSPECIFIED Status: Chronic - Plan cont current plan of care * medication reviewed as below * symptomatic treatment * today plan for MRI * GI following. Review of Systems - Review of Systems Eyes: negative: Pain, Vision Change, Conjunctivae Inflammation, Eyelid Inflammation, Redness, Other ENT: negative: Ear Pain, Ear Discharge, Nose Pain, Nose Discharge, Nose Congestion, Mouth Pain, Mouth Swelling, Throat Pain, Throat Swelling, Other Respiratory: negative: Cough, Dry, Shortness of Breath, Hemoptysis, SOB with Excertion, Pleuritic Pain, Sputum, Wheezing Cardiovascular: negative: chest pain, palpitations, orthopnea, paroxysmal nocturnal dyspnea, edema, light headedness, other Gastrointestinal: Nausea. negative: Vomiting, Abdominal Pain, Diarrhea, Constipation, Melena, Hematochezia, Other Genitourinary: negative: Dysuria, Frequency, Incontinence, Hematuria, Retention , Other Musculoskeletal: negative: Neck Pain, Shoulder Pain, Arm Pain, Back Pain, Hand Pain, Leg Pain, Foot Pain, Other Skin: negative: Rash, Lesions, Pavel, Bruising, Other - Medications/Allergies Allergies/Adverse Reactions: Allergies Allergy/AdvReac Type Severity Reaction Status Date / Time oseltamivir [From Tamiflu] Allergy Intermediate Rash Verified 04/11/18 12:59 Sulfa (Sulfonamide Allergy Mild Stomach Verified 04/11/18 12:59 Antibiotics) Ache adhesive Allergy Verified 02/23/19 08:27 morphine Allergy Verified 02/23/19 08:27 whey Allergy Verified 02/23/19 08:27 diphenhydramine AdvReac Mild Verified 10/29/16 18:57 [From Benadryl] procaine [From Novocain] AdvReac Mild Verified 10/29/16 18:57 promethazine [From Phenergan] AdvReac Mild Anxiety Verified 10/29/16 18:57 Medications: Current Medications Acetaminophen (Tylenol) 650 mg PO Q4H PRN PRN Reason: Headache/Fever/Mild Pain (1-3) Artificial Tears (Tears Naturale) 2 drop EA EYE PRN PRN PRN Reason: Dry Eyes Calcium Carbonate (Tums) 1,000 mg PO Q4H PRN PRN Reason: Heartburn or Indigestion Dicyclomine HCl (Bentyl) 10 mg PO ONE JEANINE Stop: 04/27/19 12:00 Dicyclomine HCl (Bentyl) 10 mg PO Q6H PRN PRN Reason: GI Cramping Fentanyl (Sublimaze) 25 mcg SLOW IVP Q2H PRN PRN Reason: Severe Pain (7-10) Last Admin: 04/27/19 10:28 Dose: 25 mcg Guaifenesin (Robitussin Sf) 200 mg PO Q4H PRN PRN Reason: Cough Hydralazine HCl (Apresoline) 10 mg SLOW IVP Q4H PRN PRN Reason: SBP > 180 and HR < 70 Promethazine HCl 25 mg/ Sodium (Chloride) 51 mls @ 204 mls/hr IVPB Q6H PRN PRN Reason: Nausea 2ND LINE Loratadine (Claritin) 10 mg PO DAILYPRN PRN PRN Reason: Sinus Symptoms Lorazepam (Ativan) 1 mg PO ONE [facility] Stop: 04/27/19 12:00 Lorazepam (Ativan) 1 mg PO Q6H PRN PRN Reason: Anxiety Ondansetron HCl (Zofran Odt) 8 mg PO ONE [facility] Stop: 04/27/19 12:00 Ondansetron HCl (Zofran) 4 mg IVP Q4H PRN PRN Reason: Nausea/Vomiting 1ST LINE Last Admin: 04/27/19 07:07 Dose: 4 mg Ondansetron HCl (Zofran Odt) 4 mg PO Q6H PRN PRN Reason: Nausea/Vomiting Pantoprazole Sodium (Protonix) 40 mg PO BID-AC [facility] Last Admin: 04/27/19 10:34 Dose: 40 mg Sodium Chloride ([place] Nasal [place] 0.65%) 0 ml EA NARE QIDPRN PRN PRN Reason: Nasal Congestion Throat Lozenges (Cepastat Lozenges) 1 grady PO Q2H PRN PRN Reason: Sore Throat
[2019-04-27] MEDS: Lorazepam 1 MG TAB PO PRN (12:20)
[2019-04-27] MEDS ORDERED: Lorazepam 2 MG/ML VIAL ONE (14:19)
--- NOTE | 2019-04-27 15:20 | MRI ---
MRI OF THE ABDOMEN WITHOUT AND WITH CONTRAST MR ENTEROGRAPHY: HISTORY: Crohn's disease of the small bowel. COMPARISON: 02/22/2019. TECHNIQUE: Multiplanar, multisequence MR images obtained of the abdomen without and with IV contrast. Volumen w as given for enteric contrast. FINDINGS: There is a small amount of free fluid in the pelvis. The patient has a colostomy in the left lower q uadrant of the abdomen. The patient has a Higginbotham's pouch with the end just beneath the ostomy. Thi s corresponds to a staple line seen on prior CT. Moderate stool is seen throughout the colon. This is apparent thickening of the wall of the terminal ileum, but this is not seen on all images and this likely represents peristalsis and intermittent de compression of the bowel. No significant asymmetric enhancement of this bowel is seen. There is a focal area of thickening of the wall of ileum in the pelvis. This is in the distal small bowel loops, but not at the terminal il eum. The bowel proximal to this area of focal thickening does not demonstrate significant dilatation . The visualized portions of the liver, kidneys, adrenal glands, spleen, and pancreas are unremarkable. The gallbladder has been removed. No abdominal adenopathy is seen. The reproductive organs are unremarkable. IMPRESSION: There is an area of focal thickening of distal small bowel which likely represents ileum. However, t his is not the terminal ileum. POS: [facility]
--- NOTE | 2019-04-27 16:39 | PRG ---
DATE OF SERVICE: 04/27/2019 SUBJECTIVE: Ms. Morris was able to complete her MRI today and did not vomit the contrast. She did have a panic attack in the MRI scanner and Chelsea Arellano was called. She was given an extra milligram of Ativan. This afternoon, she has taken a small amount of clear liquid, but now sleepy from the medication. She is still ambulating to the bathroom after the MRI and after the medications and perks up when stimulated. OBJECTIVE: VITAL SIGNS: Temperature 97.6, pulse 67, blood pressure 102/72. GENERAL: She is in no acute distress. Alert and oriented x3. LUNGS: Clear to auscultation bilaterally. HEART: Regular rate and rhythm. ABDOMEN: Soft. Minimal tenderness in the upper abdomen without guarding. Bowel sounds are present. EXTREMITIES: No lower extremity edema. LABORATORY DATA: White blood cell count 4.9, hemoglobin 12.1, platelets 213. Creatinine 0.7. IMPRESSION: 1. Crohn disease. She has had complicated [id number] disease. MR enterography today shows a segment of distal ileum with focal thickening, however, this is not the terminal ileum. There are no obstructive signs. At this point, we will continue with the current medical therapy. We can avoid steroids. She does have retained stool in the bowel and she may be getting constipated, particularly with the opioid use. 2. Abdominal pain. She gets intermittent cramping abdominal pain. She has been taking hydrocodone at home and asking for the fentanyl every 2 hours in the hospital. Given her significant amount of stress and benzodiazepine use, she may be becoming dependent on the opioid medicine; however, this is likely not the best treatment for her Crohn's related pain. I would discontinue the fentanyl. I am not sure where she was getting the hydrocodone, but perhaps from her repeated ER visits. I have discussed with her that she should avoid opioid pain medicines for this type of abdominal pain. RECOMMENDATIONS: 1. Once she is tolerating full liquid diet, she can advance from there at home and she will be ready to discharge home this evening. 2. Discontinue opioid pain medications. 3. Follow up in the office with Dr. Pena. 4. She might need to end up having an oral MiraLAX in light of the stool noted throughout the colon. Today, she is having running stools after the MRI contrast. I will not start the laxative currently. 5. Follow up with Dr. Pena in the office. Job ID: [id number]
[2019-04-27] MEDS: Dicyclomine 20 MG TAB PO PRN (19:30)
[2019-04-27] MEDS ORDERED: HYDROcodone/Acetaminophen 5/325 mg Tablet PO SCH (22:30)
[2019-04-28 07:40] VITALS: TEMP 98.6
[2019-04-28] MEDS: Dicyclomine 20 MG TAB PO PRN (08:04)
[2019-04-28] MEDS: Ondansetron PF 4 MG/2 ML Vial IVP PRN (08:04)
[2019-04-28] MEDS: Lorazepam 1 MG TAB PO PRN (09:22)
--- NOTE | 2019-04-28 11:54 | PDOC.PN ---
- Subjective Encounter Start Date: 04/28/19 Encounter Start Time: 08:15 Patient seen and examined. No new complaints. No overnight events - Objective Resuscitation Status - Order Detail: 04/26/19 22:18 Resuscitation Status Routine Resuscitation Status: FULL: Full Resuscitation MAR Reviewed: Yes Vital Signs & Weight: Vital Signs (12 hours) Temp Pulse Resp BP Pulse Ox 04/28/19 08:08 98 04/28/19 07:40 98.6 F 88 20 99/66 98 Weight Admit Weight 128 lb Weight 128 lb I&O: 04/27/19 04/28/19 04/29/19 06:59 06:59 06:59 Intake Total 500 Balance 500 Result Diagrams: 04/27/19 09:18 04/27/19 09:18 Additional Labs: Accuchecks 04/27/19 14:21 POC Glucose 58 L* Radiology Reviewed by me: Yes (MRI noted) Phys Exam - Physical Examination Constitutional: NAD HEENT: PERRLA, moist MMs, sclera anicteric Neck: no JVD, supple Respiratory: no wheezing, no rales, no rhonchi Cardiovascular: RRR, no significant murmur, no rub Gastrointestinal: soft, non-tender, no distention, positive bowel sounds colostomy+ Musculoskeletal: no edema, pulses present Neurological: non-focal, normal sensation, moves all 4 limbs Lymphatic: no nodes Psychiatric: normal affect, A&O x 3 Skin: no rash, normal turgor Dx/Plan (1) Nausea & vomiting Code(s): R11.2 - NAUSEA WITH VOMITING, UNSPECIFIED Status: Resolved (2) Crohn's disease of both small and large intestine with fistula Code(s): K50.813 - CROHN'S DISEASE OF BOTH SMALL AND LARGE INTESTINE W FISTULA Status: Chronic Comment: and perianal disease required colon resection and colostomy (3) Asthma Code(s): J45.909 - UNSPECIFIED ASTHMA, UNCOMPLICATED Status: Acute (4) Anxiety and depression Code(s): F41.9 - ANXIETY DISORDER, UNSPECIFIED; F32.9 - MAJOR DEPRESSIVE DISORDER, SINGLE EPISODE, UNSPECIFIED Status: Chronic - Plan cont current plan of care * medication reviewed as below * symptomatic treatment * see discharge summery. Review of Systems - Review of Systems ENT: negative: Ear Pain, Ear Discharge, Nose Pain, Nose Discharge, Nose Congestion, Mouth Pain, Mouth Swelling, Throat Pain, Throat Swelling, Other Respiratory: negative: Cough, Dry, Shortness of Breath, Hemoptysis, SOB with Excertion, Pleuritic Pain, Sputum, Wheezing Cardiovascular: negative: chest pain, palpitations, orthopnea, paroxysmal nocturnal dyspnea, edema, light headedness, other Gastrointestinal: negative: Nausea, Vomiting, Abdominal Pain, Diarrhea, Constipation, Melena, Hematochezia, Other Genitourinary: negative: Dysuria, Frequency, Incontinence, Hematuria, Retention , Other Musculoskeletal: negative: Neck Pain, Shoulder Pain, Arm Pain, Back Pain, Hand Pain, Leg Pain, Foot Pain, Other - Medications/Allergies Allergies/Adverse Reactions: Allergies Allergy/AdvReac Type Severity Reaction Status Date / Time oseltamivir [From Tamiflu] Allergy Intermediate Rash Verified 04/11/18 12:59 Sulfa (Sulfonamide Allergy Mild Stomach Verified 04/11/18 12:59 Antibiotics) Ache adhesive Allergy Verified 02/23/19 08:27 morphine Allergy Verified 02/23/19 08:27 diphenhydramine AdvReac Mild Verified 10/29/16 18:57 [From Benadryl] procaine [From Novocain] AdvReac Mild Verified 10/29/16 18:57 promethazine [From Phenergan] AdvReac Mild Anxiety Verified 10/29/16 18:57 Medications: Current Medications Acetaminophen (Tylenol) 650 mg PO Q4H PRN PRN Reason: Headache/Fever/Mild Pain (1-3) Last Admin: 04/28/19 08:58 Dose: 650 mg Artificial Tears (Tears Naturale) 2 drop EA EYE PRN PRN PRN Reason: Dry Eyes Calcium Carbonate (Tums) 1,000 mg PO Q4H PRN PRN Reason: Heartburn or Indigestion Dicyclomine HCl (Bentyl) 10 mg PO Q6H PRN PRN Reason: GI Cramping Last Admin: 04/28/19 08:04 Dose: 10 mg Guaifenesin (Robitussin Sf) 200 mg PO Q4H PRN PRN Reason: Cough Hydralazine HCl (Apresoline) 10 mg SLOW IVP Q4H PRN PRN Reason: SBP > 180 and HR < 70 Promethazine HCl 25 mg/ Sodium (Chloride) 51 mls @ 204 mls/hr IVPB Q6H PRN PRN Reason: Nausea 2ND LINE Loratadine (Claritin) 10 mg PO DAILYPRN PRN PRN Reason: Sinus Symptoms Lorazepam (Ativan) 1 mg PO Q6H PRN PRN Reason: Anxiety Last Admin: 04/28/19 09:22 Dose: 1 mg Ondansetron HCl (Zofran) 4 mg IVP Q4H PRN PRN Reason: Nausea/Vomiting 1ST LINE Last Admin: 04/28/19 08:04 Dose: 4 mg Ondansetron HCl (Zofran Odt) 4 mg PO Q6H PRN PRN Reason: Nausea/Vomiting Last Admin: 04/27/19 19:31 Dose: 4 mg Pantoprazole Sodium (Protonix) 40 mg PO BID-AC [facility] Last Admin: 04/28/19 08:00 Dose: 40 mg Sodium Chloride ([place] Nasal [place] 0.65%) 0 ml EA NARE QIDPRN PRN PRN Reason: Nasal Congestion Throat Lozenges (Cepastat Lozenges) 1 grady PO Q2H PRN PRN Reason: Sore Throat
[2019-04-28 12:18] VITALS: BP 94/69
--- NOTE | 2019-04-28 12:55 | DIS ---
DATE OF ADMISSION: 04/26/2019 DATE OF DISCHARGE: 04/28/2019 DISCHARGE DISPOSITION: Home. PRIMARY DISCHARGE DIAGNOSES: 1. Nausea and vomiting, resolved. 2. Complicated Crohn disease with perianal disease, required colon resection and colostomy. SECONDARY DISCHARGE DIAGNOSES: Asthma, anxiety, and depression. PRIMARY PROCEDURE/OPERATION: None. RADIOLOGICAL INVESTIGATION: MRI abdomen, which was done under sedation. Acute abdomen series x-ray. SIGNIFICANT LABORATORY DATA: Hemoglobin 12.1, WBC 4.9, platelet 213. Sodium 137, creatinine 0.70. LFT normal. test negative. Electrolytes normal. Urinalysis normal. DISCHARGE MEDICATIONS: 1. Bentyl 10 mg q.6 hourly p.r.n. 2. Lorazepam one tablet 1 mg q.6 hourly p.r.n. 3. Zofran 8 mg q.6 hourly p.r.n. 4. Omeprazole 40 mg b.i.d. 5. Stelara as directed. 6. MiraLAX 17 g p.o. daily. CONTRAINDICATION: None. CODE STATUS: Full code. INPATIENT PACKAGING SALES REPRESENTATIVE: Dr. Charles was following while in hospital. ALLERGIES: OSELTAMIVIR, SULFA DRUGS. DISCHARGE PLAN: Posthospital, the patient will follow up with Dr. Disha Wiley, primary care physician, in 1 week and the patient will follow up with Dr. Jean Norris for Crohn's management. HOSPITAL COURSE: A 29-year-old female was admitted by Dr. Brown or Dr. Wynne. I am not seeing their H and P yet, so we need to follow up on that. This patient was admitted for nausea and vomiting. The patient was evaluated by Dr. Charles in the emergency room. The patient has complicated Crohn disease and she is getting Stelara. She is following Dr. Pena as an outpatient basis. There was plan for doing MRI, but it was not done as an outpatient basis and that is why we decided to do abdomen MRI. She was claustrophobic and that is why we did MRI under sedative medication. She had [place] at MRI machine because of panic attack that was resolved. MRI was successful. MRI reported as area of focal thickening in distal small bowel and Dr. Charles recommended to continue outpatient treatment. She was little bit constipated and that is why we advised her to continue MiraLAX. We also advised her to avoid narcotic medication for pain. The patient is seen and examined at bedside today. She is cleared for discharge from GI perspective and the patient also wants to go home. We will discharge her today. Job ID: [id number]
--- NOTE | 2019-04-28 13:16 | PRG ---
DATE OF SERVICE: 04/28/2019 SUBJECTIVE: Ms. Morris tolerated her solid diet last night, but she did vomit this morning. She has had periodic episodes of epigastric pain, but these last for seconds to minutes at a time and then away. PHYSICAL EXAMINATION: VITAL SIGNS: Temperature 98.6, pulse 82, blood pressure 94/69. GENERAL: She is in no acute distress. Alert and oriented x3. LUNGS: Clear to auscultation bilaterally. HEART: Regular rate and rhythm without murmur. ABDOMEN: Soft, tender in the epigastric region without guarding. Bowel sounds are present. Tenderness is mild overall. EXTREMITIES: No lower extremity edema. IMPRESSION: Complicated Crohn disease. MR enterography yesterday shows thickening of the distal ileum, but not the terminal ileum. There is no significant obstruction, and overall, the findings do not appear severe. She does, however, have significant amount of stool in her colon. She had a bowel movement this morning, had a lot of cramping just before, and when she passes stool out, she felt much better. Maybe that the constipation is playing a significant role in her abdominal pain more so than active inflammatory bowel disease. Given the evidence of thickening in the distal ileum, we will continue medical treatment with Stelara, which we are working on, trying to give once every 2 weeks at this point. I think we should continue to avoid steroids. There is no indication that surgical intervention is necessary based on the MRI findings. I hope she will have significant improvement in her pain if we can get the constipation better treated. She has apparently been taking some hydrocodone for the pain, which I think is probably not optimal for the kind of pain involved. I have encouraged her to avoid opioid pain medications. Gently, this will also potentially worsen constipation. RECOMMENDATIONS: 1. Start MiraLAX daily. She may have some increase in her abdominal discomfort and distention and even periodic vomiting as she 1st starts the osmotic laxatives. Hopefully, she will see gradual improvement over the next couple of weeks as we start seeing improved stool output with them. 2. Continue Stelara. 3. While she vomited today, she has been vomiting most days over the last couple of months and I think she should be ready to discharge home today. She is keeping down adequate fluids orally overall. 4. She tells me today that she is moving to [place] later this week. She will continue to follow with Dr. Mitchell Low in [place] through Telemedicine. Job ID: [id number]
--- NOTE | 2019-04-29 07:56 | HP ---
PRIMARY CARE DOCTOR: Disha Wiley MD CODE STATUS: Full code. TIME OF EVALUATION: 10:00 p.m. CHIEF COMPLAINT: Nausea and vomiting. HISTORY OF PRESENT ILLNESS: This is a 29-year-old female patient with past medical history of Crohn disease with complication, status post hemicolectomy and colostomy, chronic anemia, diastolic dysfunction stage II, asthma, autoimmune hepatitis, came to the hospital after having nausea and vomiting. The patient states these has been present for the past couple months, and has been followed by Dr. Pena. The patient had had some causing these problems. The symptoms were very severe. The patient reported that she has lost a significant amount of weight in the past few months due to persistent nausea, vomiting, being unable to hold anything down. Due to these symptoms were very severe abdominal pain associated with nausea, only improving with IV opioid medications. REVIEW OF SYSTEMS: CONSTITUTIONAL: No fever, chills, or generalized weakness. RESPIRATORY: No cough, sputum production, or shortness of breath. CARDIOVASCULAR: No chest pain or palpitation. GASTROINTESTINAL: The patient had nausea, vomiting, diarrhea, and abdominal pain. DIRECTOR OF PATIENT FINANCIAL SERVICES: No dizziness, headache, or feeling lightheaded. GENITOURINARY: No burning on urination. EXTREMITIES: No leg swelling. All other systems were reviewed and negative except for the findings mentioned above. PAST MEDICAL HISTORY: Positive for the findings mentioned in the HPI. PAST SURGICAL HISTORY: Perianal fistula surgery, cholecystectomy, perianal abscess, small-bowel resection, and ostomy surgery in 2019. PSYCH HISTORY: Depression, anxiety, OCD, and PTSD. SOCIAL HISTORY: No alcohol. No drugs. No smoking history. FAMILY HISTORY: Reviewed and noncontributory to the current presentation. ALLERGIES: ADHESIVE, BENADRYL, MORPHINE, PHENERGAN, PROCAINE, SULFA, TAMIFLU. CURRENT MEDICATIONS: 1. Dicyclomine. 2. Zofran. 3. Omeprazole. 4. Stelara. 5. Lorazepam. PHYSICAL EXAMINATION: VITAL SIGNS: On presentation, blood pressure 107/76 with heart rate 100, respiratory rate was 15, temperature 97.7, pain was 8/10, oxygen saturation was 98% on room. GENERAL APPEARANCE: The patient is alert, in discomfort due to abdominal pain, in distress. HEENT: Eyes, normal conjunctivae. Moist oral mucosa. Anicteric. No JVD. RESPIRATORY: Bilateral air entry. No rales or wheezes. Symmetric expansion. CARDIOVASCULAR: Normal rate, regular rhythm. No murmurs. No gallop. No edema. ABDOMEN: Soft. Normal bowel sounds. The patient has severe tenderness to palpation and colostomy bag in the left lower quadrant in right place, properly functioning. MUSCULOSKELETAL: Baseline range of motion and strength. SKIN: Warm, intact. No pallor. No rash. No redness. Capillary refill seems to be intact. NEURO: No evidence of any new focal weakness. Cranial nerve seems to be intact. PSYCH: The patient has good mood. No anxiety. Optimal judgment. Acute abdomen series showed postoperative changes with no evidence for free intraperitoneal or small-bowel obstruction. LABORATORY DATA: The labs were reviewed. The patient has white count of 8.2, hemoglobin 13, MCV is 81, and platelet count 230. Chemistry: Sodium 136, potassium 4.7, chloride 105, carbon dioxide 23, anion gap 12, BUN 9, creatinine 0.7, GFR 85, glucose 83, calcium 9.1, magnesium 1.9, and total bilirubin 0.3. LFTs were negative. Lipase was negative. Urine was done which shows mild ketonuria likely secondary ASSESSMENT AND PLAN: The patient will be placed in the hospital with the following medical problems: 1. Crohn disease that may have flared up, might be complicated with some small bowel obstruction. Followed the x-ray, that was not the finding that we saw. We will treat symptomatically. Dr. Charles has been consulted for recommendations. 2. Severe abdominal pain, needing opioid medication for optimal control. This places the patient at high risk of complication from treatment. 3. Deep venous thrombosis prophylaxis. Job ID: [id number] [facility]
== END 2019-04-28 12:58 | disposition home or self-care (01) | DRG 387 ==
LOC: ERS 16:13 → T4-A 18:53
PROVIDERS: ADMIT Internal Medicine; ATTEND Internal Medicine
DX: K50.90 Crohn's disease, unspecified, without complications (principal); F41.9 Anxiety disorder, unspecified; F32.9 Major depressive disorder, single episode, unspecified; D64.9 Anemia, unspecified; K75.4 Autoimmune hepatitis; K59.00 Constipation, unspecified; K62.89 Other specified diseases of anus and rectum; Z90.49 Acquired absence of other specified parts of digestive tract; Z88.5 Allergy status to narcotic agent; Z88.2 Allergy status to sulfonamides; Z79.899 Other long term (current) drug therapy
CPT/HCPCS: 36415; 36416; 74022; 74183; 80048; 80053; 81003; 82565; 83690; 83735; 84703; 85025; 96361; 96372; 96374; J0500; J1610; J2060; J2405; J3010; Q0162